=== PATIENT | female | born 1950 | race Caucasian/White ===

== ENCOUNTER → 2017-10-15 08:47 | Outpatient (CLI) | payer OTHER, SELFPAY ==
[2017-10-15 09:58] LABS: Alanine Aminotransferase 40 IU/L (9-52); Albumin Globulin Ratio 1.3 (1.0-2.8); Alkaline Phosphatase 39 U/L (38-126); Aspartate Aminotransferase 41 IU/L (14-36); BUN Creatinine Ratio 18.6 (6-22); Bilirubin Total 0.7 mg/dL (0.2-1.3); Blood Urea Nitrogen 13 mg/dL (7-17); Calcium 9.7 mg/dL (8.4-10.2); Carbon Dioxide 32 mmol/L (22-32); Chloride 100 mmol/L (98-107); Estimated Glomerular Filt Rate > 60.0 mL/min (>60); Glucose 90 mg/dL (80-110); HEMOLYSIS < 15 (0-50); Magnesium 2.1 mg/dL (1.6-2.3); Potassium 4.7 mmol/L (3.4-5.1); Sodium 141 mmol/L (137-145)
[2017-10-19 07:57] LABS: Lipoprofile NMR SEE SEPARATE REPORTS
== END ==
PROVIDERS: PCP Family Medicine; Visit Provider Specialist
DX: I48.0 Paroxysmal atrial fibrillation (principal); E78.2 Mixed hyperlipidemia
CPT/HCPCS: 36415; 80053; 83704; 83735

== ENCOUNTER → 2018-02-16 14:16 | Outpatient (CLI) | payer MEDICARE, BC, SELFPAY ==
[2018-02-16 16:10] LABS: Alanine Aminotransferase 44 IU/L (9-52); Albumin 3.7 g/dL (3.5-5.0); Albumin Globulin Ratio 1.4 (1.0-2.8); Alkaline Phosphatase 38 U/L (38-126); Aspartate Aminotransferase 51 IU/L (14-36); BUN Creatinine Ratio 21.7 (6-22); Bilirubin Total 0.5 mg/dL (0.2-1.3); Blood Urea Nitrogen 13 mg/dL (7-17); Calcium 9.3 mg/dL (8.4-10.2); Carbon Dioxide 32 mmol/L (22-32); Chloride 103 mmol/L (98-107); Estimated Glomerular Filt Rate > 60.0 mL/min (>60); Globulin 2.6 g/dL (1.7-4.1); Glucose 87 mg/dL (80-110); HEMOLYSIS < 15 (0-50); Magnesium 2.2 mg/dL (1.6-2.3); Sodium 141 mmol/L (137-145); Total Protein 6.3 g/dL (6.3-8.2)
== END ==
PROVIDERS: Visit Provider Specialist
DX: I48.0 Paroxysmal atrial fibrillation (principal); R94.5 Abnormal results of liver function studies
CPT/HCPCS: 36415; 80053; 80299; 83735

== ENCOUNTER → 2018-06-18 10:09 | Outpatient (CLI) | payer MEDICARE, BC, SELFPAY ==
[2018-06-18 11:14] LABS: Alanine Aminotransferase 41 IU/L (9-52); Albumin 3.9 g/dL (3.5-5.0); Albumin Globulin Ratio 1.4 (1.0-2.8); Alkaline Phosphatase 46 U/L (38-126); Aspartate Aminotransferase 46 IU/L (14-36); Bilirubin Total 0.4 mg/dL (0.2-1.3); Blood Urea Nitrogen 7 mg/dL (7-17); Calcium 9.6 mg/dL (8.4-10.2); Carbon Dioxide 29 mmol/L (22-32); Chloride 100 mmol/L (98-107); Estimated Glomerular Filt Rate > 60.0 mL/min (>60); Globulin 2.7 g/dL (1.7-4.1); Glucose 77 mg/dL (80-110); HEMOLYSIS < 15 (0-50); Potassium 4.5 mmol/L (3.4-5.1); Sodium 137 mmol/L (137-145); Total Protein 6.6 g/dL (6.3-8.2)
[2018-06-21 10:19] LABS: Lipoprofile NMR SEE SEPERATE REPORT
== END ==
PROVIDERS: Family Provider Family Medicine; PCP Family Medicine; Visit Provider Specialist
DX: I48.0 Paroxysmal atrial fibrillation (principal); R94.5 Abnormal results of liver function studies; E78.2 Mixed hyperlipidemia
CPT/HCPCS: 36415; 80053; 80299; 83704

== ENCOUNTER → 2018-10-27 09:08 | Outpatient (CLI) | payer MEDICARE, BC, SELFPAY ==
[2018-10-27 11:08] LABS: Alanine Aminotransferase 31 IU/L (9-52); Albumin 3.6 g/dL (3.5-5.0); Albumin Globulin Ratio 1.2 (1.0-2.8); Alkaline Phosphatase 39 U/L (38-126); Aspartate Aminotransferase 48 IU/L (14-36); BUN Creatinine Ratio 11.4 (6-22); Bilirubin Total 0.3 mg/dL (0.2-1.3); Blood Urea Nitrogen 8 mg/dL (7-17); Calcium 9.6 mg/dL (8.4-10.2); Carbon Dioxide 31 mmol/L (22-32); Chloride 101 mmol/L (98-107); Estimated Glomerular Filt Rate > 60.0 mL/min (>60); Globulin 2.9 g/dL (1.7-4.1); Glucose 97 mg/dL (80-110); HEMOLYSIS < 15 (0-50); Magnesium 1.9 mg/dL (1.6-2.3); Sodium 138 mmol/L (137-145); Total Protein 6.5 g/dL (6.3-8.2)
[2018-10-29 11:40] LABS: Lipoprofile NMR SEE SEPERATE REPORT
== END ==
PROVIDERS: Family Provider Family Medicine; PCP Family Medicine; Visit Provider Specialist
DX: I48.0 Paroxysmal atrial fibrillation (principal); E78.2 Mixed hyperlipidemia; R94.5 Abnormal results of liver function studies
CPT/HCPCS: 36415; 80053; 83704; 83735

== ENCOUNTER → 2019-06-30 08:15 | Outpatient (CLI) | payer MEDICARE, BC, SELFPAY ==
[2019-06-30 09:28] LABS: Alanine Aminotransferase 45 IU/L (<35); Albumin 3.5 g/dL (3.5-5.0); Albumin Globulin Ratio 1.2 (1.0-2.8); Alkaline Phosphatase 37 U/L (38-126); Aspartate Aminotransferase 46 IU/L (14-36); BUN Creatinine Ratio 14.3 (6-22); Bilirubin Total 0.6 mg/dL (0.2-1.3); Blood Urea Nitrogen 10 mg/dL (7-17); Calcium 9.5 mg/dL (8.4-10.2); Carbon Dioxide 33 mmol/L (22-32); Chloride 103 mmol/L (98-107); Estimated Glomerular Filt Rate > 60.0 mL/min (>60); Globulin 2.9 g/dL (1.7-4.1); Glucose 85 mg/dL (80-110); HEMOLYSIS < 15 (0-50); Magnesium 1.9 mg/dL (1.6-2.3); Potassium 4.1 mmol/L (3.4-5.1); Sodium 139 mmol/L (137-145); Total Protein 6.4 g/dL (6.3-8.2)
[2019-07-04 08:40] LABS: Lipoprofile NMR SEE SEPERATE REPORT
== END ==
PROVIDERS: Family Provider Family Medicine; PCP Family Medicine; Referring Provider Specialist; Visit Provider Specialist
DX: E78.2 Mixed hyperlipidemia (principal); I48.0 Paroxysmal atrial fibrillation
CPT/HCPCS: 36415; 80053; 83704; 83735

== ENCOUNTER → 2020-02-23 10:01 | Outpatient (CLI) | payer MEDICARE, BC, SELFPAY ==
[2020-02-23 12:07] LABS: Alanine Aminotransferase 28 IU/L (<35); Albumin 3.5 g/dL (3.5-5.0); Albumin Globulin Ratio 1.3 (1.0-2.8); Alkaline Phosphatase 44 U/L (38-126); Aspartate Aminotransferase 46 IU/L (14-36); BUN Creatinine Ratio 26.9 (6-22); Bilirubin Total 0.5 mg/dL (0.2-1.3); Blood Urea Nitrogen 21 mg/dL (7-17); Calcium 9.4 mg/dL (8.4-10.2); Carbon Dioxide 32 mmol/L (22-32); Chloride 104 mmol/L (98-107); Estimated Glomerular Filt Rate > 60.0 mL/min (>60); Globulin 2.7 g/dL (1.7-4.1); Glucose 80 mg/dL (80-110); HEMOLYSIS < 15 (0-50); Potassium 4.2 mmol/L (3.4-5.1); Sodium 138 mmol/L (137-145); Total Protein 6.2 g/dL (6.3-8.2)
[2020-03-13 15:21] LABS: LDL Particle 954
[2020-03-13 15:22] LABS: HDL-Cholesterol 124; LDL-Cholsterol 125
[2020-03-13 15:23] LABS: Cholesterol, Total 256; Triglycerides 47
[2020-03-13 15:24] LABS: HDL-Particle (Total) 39.7; LDL Size 21.1; Small LDL- Particle <90
== END ==
PROVIDERS: Family Provider Family Medicine; PCP Family Medicine; Referring Provider Specialist; Visit Provider Specialist
DX: E78.2 Mixed hyperlipidemia (principal); I48.0 Paroxysmal atrial fibrillation
CPT/HCPCS: 36415; 80053; 80061; 80299; 83704; 83735

== ENCOUNTER → 2021-04-22 09:13 | Outpatient (CLI) | payer MEDICARE, BC, SELFPAY ==
[2021-04-22 13:41] LABS: Alanine Aminotransferase 24 IU/L (<35); Albumin 3.5 g/dL (3.5-5.0); Albumin Globulin Ratio 1.3 (1.0-2.8); Alkaline Phosphatase 45 U/L (38-126); Aspartate Aminotransferase 44 IU/L (14-36); BUN Creatinine Ratio 17.7 (6-22); Bilirubin Total 0.4 mg/dL (0.2-1.3); Blood Urea Nitrogen 14 mg/dL (7-17); Calcium 9.7 mg/dL (8.4-10.2); Carbon Dioxide 32 mmol/L (22-32); Chloride 103 mmol/L (98-107); Estimated Glomerular Filt Rate > 60.0 mL/min (>60); Globulin 2.7 g/dL (1.7-4.1); Glucose 81 mg/dL (80-110); HEMOLYSIS < 15 (0-50); Potassium 4.8 mmol/L (3.4-5.1); Sodium 137 mmol/L (137-145); Total Protein 6.2 g/dL (6.3-8.2)
[2021-04-25 08:17] LABS: Cholesterol, Total 249 mg/dL (100-199); HDL-Cholesterol 114 mg/dL (>39); HDL-Particle (Total) 37.1 umol/L (>=30.5); LDL Particle 1037 nmol/L (<1000); LDL Size 21.2 nm (>20.5); LDL-Cholsterol 125 mg/dL (0-99); LP-IR Score <25 (<=45); Small LDL- Particle <90 nmol/L (<=527); Triglycerides 60 mg/dL (0-149)
== END ==
PROVIDERS: Family Provider Family Medicine; PCP Family Medicine; Referring Provider Specialist; Visit Provider Specialist
DX: E78.00 Pure hypercholesterolemia, unspecified (principal)
CPT/HCPCS: 36415; 80053; 80061; 83704

== ENCOUNTER → 2021-12-13 08:40 | Outpatient (CLI) | payer MEDICARE, BC, SELFPAY ==
[2021-12-13 11:17] LABS: Alanine Aminotransferase 26 IU/L (<35); Albumin 3.5 g/dL (3.5-5.0); Albumin Globulin Ratio 1.1 (1.0-2.8); Alkaline Phosphatase 49 U/L (38-126); Aspartate Aminotransferase 46 IU/L (14-36); BUN Creatinine Ratio 11.8 (6-22); Bilirubin Total 0.4 mg/dL (0.2-1.3); Blood Urea Nitrogen 9 mg/dL (7-17); Calcium 9.2 mg/dL (8.4-10.2); Carbon Dioxide 34 mmol/L (22-32); Chloride 102 mmol/L (98-107); Estimated Glomerular Filt Rate > 60 mL/min (>60); Globulin 3.2 g/dL (1.7-4.1); Glucose 85 mg/dL (80-110); HEMOLYSIS < 15 (0-50); Potassium 4.4 mmol/L (3.4-5.1); Sodium 138 mmol/L (137-145); Total Protein 6.7 g/dL (6.3-8.2)
[2021-12-13 11:48] LABS: Thyroid Stimulating Hormone 0.777 uIU/mL (0.47-4.68)
[2021-12-14 14:58] LABS: Free T4, Direct Thyroxine 1.12 ng/dL (0.78-2.19)
[2021-12-15 12:02] LABS: Cholesterol, Total 248 mg/dL (100-199); HDL-Cholesterol 116 mg/dL (>39); HDL-Particle (Total) 36.7 umol/L (>=30.5); LDL Particle 1085 nmol/L (<1000); LDL Size 21.1 nm (>20.5); LDL-Cholsterol 120 mg/dL (0-99); LP-IR Score <25 (<=45); Small LDL- Particle <90 nmol/L (<=527); Triglycerides 71 mg/dL (0-149)
== END ==
PROVIDERS: Family Provider Family Medicine; PCP Family Medicine; Referring Provider Specialist; Visit Provider Specialist
DX: I48.0 Paroxysmal atrial fibrillation (principal); E78.00 Pure hypercholesterolemia, unspecified
CPT/HCPCS: 36415; 80053; 80061; 80299; 83704; 83735; 84439; 84443

== ENCOUNTER → 2021-12-19 09:10 | Outpatient (CLI) | payer MEDICARE, BC, SELFPAY | PROVIDERS: Family Provider Family Medicine; PCP Family Medicine; Referring Provider Specialist; Visit Provider Specialist | DX: I48.0 Paroxysmal atrial fibrillation (principal) | CPT/HCPCS: 36415; 80299 ==

== ENCOUNTER → 2022-02-24 07:54 | Outpatient (CLI) | payer MEDICARE, BC, SELFPAY ==
[2022-02-24 08:30] LABS: Add Manual Diff / Slide Review NO; Basophils Absolute Auto 100 /uL (0-100); Basophils Percent Auto 0.7 % (0-2); Eosinophils Absolute Auto 100 /uL (0-450); Eosinophils Percent Auto 1.3 % (2-4); Hemoglobin 13.5 g/dL (12.0-16.0); Lymphocytes Absolute Auto 1000 /uL (1100-4500); Lymphocytes Percent Auto 13.3 % (25-40); Mean Corpuscular HGB Conc 32.9 % (30-36); Mean Corpuscular Volume 91.1 fL (80-100); Monocytes Absolute Auto 500 /uL (0-900); Monocytes Percent Auto 6.6 % (3-14); Neutrophils Absolute Auto 6100 /uL (1500-7000); Neutrophils Percent Auto 78.1 % (50-75); Platelet Count 272 X10^3/uL (150-400); White Blood Cell Count 7.9 X10^3/uL (4.5-11.0)
== END ==
PROVIDERS: Family Provider Family Medicine; PCP Family Medicine; Referring Provider Family Medicine; Visit Provider Family Medicine
DX: D75.1 Secondary polycythemia (principal); I47.1 Supraventricular tachycardia; I48.0 Paroxysmal atrial fibrillation
CPT/HCPCS: 36415; 85025

== ENCOUNTER → 2022-02-26 11:03 | Outpatient (CLI) | payer MEDICARE, BC, SELFPAY ==
[2022-02-26 11:27] LABS: HEMOLYSIS < 15 (0-50); Iron 92 ug/dL (37-170)
[2022-02-26 11:38] LABS: Percent Iron Saturation 24 % (15-50); Total Iron Binding Capacity 376 ug/dL (265-497); Transferrin 281 mg/dL (206-381)
[2022-02-26 12:00] LABS: Ferritin 15 ng/mL (11-264)
== END ==
PROVIDERS: Family Provider Family Medicine; PCP Family Medicine; Visit Provider Family Medicine
DX: D75.1 Secondary polycythemia (principal); I47.1 Supraventricular tachycardia; I48.0 Paroxysmal atrial fibrillation
CPT/HCPCS: 82728; 83540; 83550

== ENCOUNTER 2022-02-28 11:32 | Emergency (ER) | payer MEDICARE, BC, SELFPAY ==
[2022-02-28 11:46] VITALS: BP 161/70; PULSE 53; RESP 14; TEMP 35.7; O2SAT 100; BMI 19.3
--- NOTE | 2022-02-28 12:58 | DI.US.S_ITS ---
PROCEDURE: US EXTREMITY NONVASC LOWER RT INDICATIONS: RIGHT MEDIAL CALF LUMP TECHNIQUE: Real-time scanning was performed of the right medial calf, with image documentation. COMPARISON: None. FINDINGS: In the area of current clinical concern there is a combined solid and fluid collection without internal or elevated peripheral vascularity at the posterior medial calf inferior to the knee. This measures up to 2.1 x 7.2 x 8.9 cm. IMPRESSION: Avascular complex fluid and debris collection within the area of current clinical concern measuring up to 2.1 x 7.2 x 8.9 cm. The appearance is nonspecific but given the absence of elevated vascularity and abscess is considered less likely than a hematoma, and possibly a inferior-dissecting complex Randall cyst emanating from the knee. Contrast-enhanced soft tissue MRI may be warranted depending on the clinical status. Please note that spontaneous hematoma in the soft tissues in a patient who has not undergone trauma and is not anticoagulated could indicate bleeding within a tumor that originally is small in size. For this reason MR scanning should be considered, potentially. Dictated by: Daniele Cuenca M.D. on 02/28/2022 at 13:39 Approved by: Daniele Cuenca M.D. on 02/28/2022 at 13:42
--- NOTE | 2022-02-28 12:59 | ED_ITS ---
HPI - Extremity Problem <Smitha Arana SHIRT MARKER - Last Filed: 02/28/22 18:17> General Chief complaint: Extremity Problem,Nontraumatic Stated complaint: abscess on RT leg/bruising Time Seen by Provider: 02/28/22 12:27 Source: patient Mode of arrival: Ambulatory History of Present Illness HPI Narrative: This is a 72-year-old female who presents to the emergency department with sudden onset of right calf pain while she was at the gym, she states that she was not doing anything physical at the time and was standing when she felt a sharp pain in her right calf. She states it swelled up like a golf while and then has been firm to palpation since. She is anticoagulated on Eliquis for atrial fibrillation. States that it is under control, she also takes flecainide, atorvastatin, metoprolol and has a history breast cancer. She recently had iron studies done which were all within range. Denies any pre-existing pain to this area. States that she did not do anything excessively physical. She denies any other bleeding. She has a history of DVT in the past as well. Related Data Home Medications Medication Instructions Recorded Confirmed VITAMIN D (Vitamin D3) 2,000 unit PO QDAY ##0 12/09/12 02/26/22 flecainide 50 mg tablet 100 mg PO BID 06/03/18 02/26/22 aspirin 81 mg tablet,delayed 81 mg PO DAILY 03/09/20 02/26/22 release (Adult Low Dose Aspirin) Previous Rx's Medication Instructions Recorded atorvastatin 20 mg tablet (Lipitor) 20 mg PO HS #90 tabs 10/13/16 metoprolol succinate 25 mg 0 PO SEE INSTRUCTIONS #30 tabs 03/03/17 tablet,extended release 24 hr (Toprol XL) apixaban 5 mg tablet (Eliquis) 5 mg PO BID #60 tabs 09/09/17 omeprazole 40 mg capsule,delayed See Rx Instructions .Route 03/13/21 release .COMPLEX #30 caps minoxidil 5 % topical foam 1 ea topical DAILY #60 grams 02/26/22 diclofenac sodium 1 % topical gel 4 g topical QID PRN rt calf 02/28/22 pain/swelling #100 grams methocarbamol 500 mg tablet 500 mg PO BEDTIME PRN muscle 02/28/22 spasm, pain #14 tabs tramadol 50 mg tablet 50 mg PO BID PRN pain #14 tabs 02/28/22 Allergies Allergy/AdvReac Type Severity Reaction Status Date / Time No Known Drug Allergies Allergy Verified 02/28/22 11:46 Review of Systems <ELIZABETH Braswell - Last Filed: 02/28/22 18:17> Review of Systems Narrative: Review of systems is negative for acute abnormalities unless otherwise noted in HPI Patient History <ELIZABETH Braswell - Last Filed: 02/28/22 18:17> Medical History Anesthesia Atrial fibrillation (2016) Breast cancer (2009) Cardiac arrhythmia (2014) DVT (deep venous thrombosis) (2012) GERD (gastroesophageal reflux disease) (2001) Hyperlipidemia (2004) PSVT (paroxysmal supraventricular tachycardia) (2014) Surgical History History of colonoscopy (2008) History of total mastectomy (2009) Normal colonoscopy (2008) Status post colposcopy (2008) Family History Father No problems noted. Mother No problems noted. Social History marital status: number of children: 2 household members: spouse lives independently: Yes caregiver/support person: No housing: house Smoking Status: Former smoker second hand exposure: No alcohol intake: current substance use type: does not use Smoking Status: Former smoker alcohol intake frequency: 0-2 drinks per day Exam <ELIZABETH Braswell - Last Filed: 02/28/22 18:17> Narrative Exam Narrative: Reviewed vitals signs and nursing notes. General: cooperative, comfortable, in no acute distress, well groomed HEENT: symmetrical facial expressions, moist mucous membranes Cardiovascular: regular rate and rhythm, no dependent edema, warm extremities without murmur, tachycardia, circumferential edema MSK: moves all extremities, neurovascularly intact, no weakness, normal tone, left medial calf with swelling, ecchymosis, is firm on the proximal medial aspect to palpation, without fluctuance, distal aspect with ecchymosis and is soft to palpation, proximal aspect is firm to palpation. Skin: brisk capillary refill, without pallor or erythema Neuro: normal speech and cognition, A&O x3, ambulatory, clear speech Psych: mental status is grossly normal, congruent mood, normal affect, pleasant and cooperative Initial Vital Signs Initial Vital Signs: Vital Signs Temperature 96.2 F L 02/28/22 11:46 Pulse Rate 53 L 02/28/22 11:46 Respiratory Rate 14 02/28/22 11:46 Blood Pressure 161/70 H 02/28/22 11:46 Pulse Oximetry 100 02/28/22 11:46 Oxygen Delivery Method 02/28/22 11:46 <Joyce Roach DO - Last Filed: 03/04/22 02:52> Initial Vital Signs Initial Vital Signs: Vital Signs Temperature 96.2 F L 02/28/22 11:46 Pulse Rate 53 L 02/28/22 11:46 Respiratory Rate 14 02/28/22 11:46 Blood Pressure 161/70 H 02/28/22 11:46 Pulse Oximetry 100 02/28/22 11:46 Oxygen Delivery Method 02/28/22 11:46 Course <ELIZABETH Braswell - Last Filed: 02/28/22 18:17> Orders Ordered: Discontinued Medications Acetaminophen (Acetaminophen 325 Mg Tablet) 975 mg PO NOW ONE Stop: 02/28/22 16:32 Last Admin: 02/28/22 16:35 Dose: 975 mg Documented By: CHANA Methocarbamol (Methocarbamol 500 Mg Tablet) 500 mg PO NOW ONE Stop: 02/28/22 16:33 Last Admin: 02/28/22 16:36 Dose: Not Given Documented By: CHANA Tramadol HCl (Tramadol 50 Mg Tablet) 50 mg PO NOW ONE Stop: 02/28/22 16:32 Last Admin: 02/28/22 16:44 Dose: Not Given Documented By: CHANA Reevaluation(s) Reevaluation #1: Re-evaluated after patient's ultrasound, no increased swelling, firmness, distal aspect is softer and not larger, patient denies any increase in pain. Vital Signs Vital signs: Vital Signs - 8 hr 02/28/22 11:46 02/28/22 16:21 Temperature 96.2 F L Pulse Rate 53 L 51 L Respiratory Rate 14 18 Blood Pressure 161/70 H 145/67 H Pulse Oximetry 100 99 Oxygen Delivery Method Room Air Room Air <Joyce Roach DO - Last Filed: 03/04/22 02:52> Orders Ordered: Discontinued Medications Acetaminophen (Acetaminophen 325 Mg Tablet) 975 mg PO NOW ONE Stop: 02/28/22 16:32 Last Admin: 02/28/22 16:35 Dose: 975 mg Documented By: CHANA Methocarbamol (Methocarbamol 500 Mg Tablet) 500 mg PO NOW ONE Stop: 02/28/22 16:33 Last Admin: 02/28/22 16:36 Dose: Not Given Documented By: CHANA Tramadol HCl (Tramadol 50 Mg Tablet) 50 mg PO NOW ONE Stop: 02/28/22 16:32 Last Admin: 02/28/22 16:44 Dose: Not Given Documented By: CHANA Vital Signs Vital signs: Vital Signs - 8 hr 02/28/22 11:46 02/28/22 16:21 Temperature 96.2 F L Pulse Rate 53 L 51 L Respiratory Rate 14 18 Blood Pressure 161/70 H 145/67 H Pulse Oximetry 100 99 Oxygen Delivery Method Room Air Room Air MDM - Extremity (Nontraumatic) <ELIZABETH Braswell - Last Filed: 02/28/22 18:17> Lab Data Result diagrams: 02/28/22 14:36 02/28/22 14:36 Labs: Lab Results 02/28/22 02/28/22 02/28/22 Range/Units 14:36 14:36 14:36 WBC 9.1 (4.5-11.0) X10^3/uL RBC 4.63 (4.0-5.2) X10^6/uL Hgb 14.2 (12.0-16.0) g/dL Hct 42.5 (36-46) % MCV 91.7 (80-100) fL MCH 30.7 (26-34) PG MCHC 33.5 (30-36) % RDW 15.1 H (11.6-14.8) % Plt Count 327 (150-400) X10^3/uL Neut % (Auto) 80.0 H (50-75) % Lymph % (Auto) 14.3 L (25-40) % [place] % (Auto) 4.2 (3-14) % Eos % (Auto) 1.0 L (2-4) % Baso % (Auto) 0.5 (0-2) % Neut # (Auto) 7300 H (1678-6522) /uL Lymph # (Auto) 1300 (1212-0483) /uL [place] # (Auto) 400 (0-900) /uL Eos # (Auto) 100 (0-450) /uL Baso # (Auto) 0 (0-100) /uL PT 13.6 H (10.1-12.7) SECONDS INR 1.2 (0.9-1.3) APTT 36 (26-36) SECONDS Sodium 139 (137-145) mmol/L Potassium 3.9 (3.4-5.1) mmol/L Chloride 102 (98-107) mmol/L Carbon Dioxide 29 (22-32) mmol/L BUN 10 (7-17) mg/dL Creatinine 0.68 (0.52-1.04) mg/dL Estimated GFR > 60 (>60) mL/min BUN/Creatinine Ratio 14.7 (6-22) Glucose 77 L (80-110) mg/dL Calcium 9.6 (8.4-10.2) mg/dL Total Bilirubin 0.5 (0.2-1.3) mg/dL AST 42 H (14-36) IU/L ALT 26 (<35) IU/L Alkaline Phosphatase 58 (38-126) U/L Total Protein 7.7 (6.3-8.2) g/dL Albumin 4.0 (3.5-5.0) g/dL Globulin 3.7 (1.7-4.1) g/dL Albumin/Globulin Ratio 1.1 (1.0-2.8) Imaging Data US - DVT: Radiologist's Impression: PROCEDURE:? US EXTREMITY NONVASC LOWER RT ? INDICATIONS:? RIGHT MEDIAL CALF LUMP ? TECHNIQUE:? Real-time scanning was performed of the right medial calf, with image documentation.? ? COMPARISON:? None. ? FINDINGS:? In the area of current clinical concern there is a combined solid and fluid collection without internal or elevated peripheral vascularity at the posterior medial calf inferior to the knee.? This measures up to 2.1 x 7.2 x 8.9 cm.? ? IMPRESSION:? Avascular complex fluid and debris collection within the area of current clinical concern measuring up to 2.1 x 7.2 x 8.9 cm.? The appearance is nonspecific but given the absence of elevated vascularity and abscess is considered less likely than a hematoma, and possibly a inferior-dissecting complex Randall cyst emanating from the knee.? Contrast-enhanced soft tissue MRI may be warranted depending on the clinical status.? Please note that spontaneous hematoma in the soft tissues in a patient who has not undergone trauma and is not anticoagulated could indicate bleeding within a tumor that originally is small in size.? For this reason MR scanning should be considered, potentially.? ? ? Dictated by: Daniele Cuenca M.D. on 02/28/2022 at 13:39 ? ? Approved by: Daniele Cuenca M.D. on 02/28/2022 at 13:42 ? MRI: Radiologist's Impression: PROCEDURE:? MR LOWER LEG RT WO/W CON ? INDICATIONS:? hematoma to medial calf, anticoagulated, malignancy/aneurysm ? TECHNIQUE:? Noncontrast coronal T1 spin echo and STIR, sagittal T1 spin echo with fat saturation and STIR, axial T1 spin echo and T2 fast spin echo with fat saturation.? After the administration of contrast, axial/sagittal/coronal T1 spin echo with fat saturation through the right lower leg .? ? COMPARISON:? [facility], EXTREMITY NONVASC LOWER RT, 02/28/2022, 13:18. ? FINDINGS:? Image quality:? Excellent.? ? Bones:? The visualized bone marrow demonstrates normal signal on all sequences.? The overlying cortex appears intact.? No abnormal intraosseous enhancement.? ? Soft tissues:? Ill-defined lobulated heterogeneous T1 hypointense and T2 hyperi ntense collection in deep soft tissue over posterior and medial aspect of proximal to mid lower leg and is superficial to the medial head of gastrocnemius muscle.? This collection measures up to 2.5 x 6.1 x 12 cm in largest transverse, AP and craniocaudal dimensions series 4, image 9 and series 7, image 22. After IV contrast infusion, no enhancement is seen within this area.? No large feeding vessel is noted extending into this area.? There is mass effect on the adjacent medial head of gastrocnemius muscle with fluid extending along posterior medial aspect of right lower leg.? No muscle signal abnormality or abnormal enhancement is seen.? No enhancing soft tissue mass is seen. ? IMPRESSION:? 1. Finding is consistent with a large hematoma along posterior and medial aspect of proximal to mid right lower leg soft tissue superficial to the medial head of gastrocnemius muscle and measures up to 2.5 x 6.1 x 12 cm in size.? No enhancing soft tissue mass is seen. ? 2. No intramuscular fluid collection or enhancing lesion is seen. ? 3. No marrow signal abnormality.? No fracture or dislocation.? No abnormal intraosseous enhancement. ? ? Dictated by: Richard Fulton M.D. on 02/28/2022 at 15:37 ? ? Approved by: Richard Fulton M.D. on 02/28/2022 at 15:47 ? MDM Narrative Medical decision making narrative: [age] year female presents to the emergency department with acute onset of swelling and pain to the right medial calf this morning while she was at the gym, she states that she was not exerting herself at the time and was purely standing there without great effort. She is anticoagulated on Eliquis b.i.d.,. Venous ultrasound of her lower extremity shows an Avascular complex fluid and debris collection within the area of current clinical concern measuring up to 2.1 x 7.2 x 8.9 cm.? The appearance is nonspecific but given the absence of elevated vascularity and abscess is considered less likely than a hematoma, and possibly a inferior-dissecting complex Randall cyst emanating from the knee.? Contrast-enhanced soft tissue MRI may be warranted depending on the clinical status.?Please note that spontaneous hematoma in the soft tissues in a patient who has not undergone trauma and is not anticoagulated could indicate bleeding within a tumor that originally is small in size.? For this reason MR scanning was considered and ordered. MR of the lower extremity shows finding is consistent with a large hematoma along posterior and medial aspect of proximal to mid right lower leg soft tissue superficial to the medial head of gastrocnemius muscle and measures up to 2.5 x 6.1 x 12 cm in size.? No enhancing soft tissue mass is seen. No intramuscular fluid collection or enhancing lesion is seen.. No marrow signal abnormality.? No fracture or dislocation.? No abnormal intraosseous enhancement. Discussed this with the patient, she did not have any interval enlargement of this hematoma, she developed pain later throughout her stay after both scans, prescribed for her topical diclofenac gel, tramadol as needed, and muscle relaxer she is having difficulty sleeping. Encourage patient to follow- up with her primary care provider, mentioned that this might improve with heat and cool compresses, a heel lift in her shoe and close follow-up. Her chart was sent to Dr. Hammer her salesforce consultant so he can assess if this is inappropriate bleeding or not and reassess her for her anticoagulant use as appropriate. Patient is appropriate and amenable to discharge home. Vital signs are stable on repeat examination is unremarkable. Patient has been informed of results. Patient has been given strict return to ER precautions for any new or worsening symptoms. Patient understands to follow up closely with outpatient providers as instructed. Patient understands plan and agrees to discharge home. All questions and concerns answered at this time. <Joyce Roach, DO - Last Filed: 03/04/22 02:52> Lab Data Labs: Lab Results 02/28/22 02/28/22 02/28/22 Range/Units 14:36 14:36 14:36 WBC 9.1 (4.5-11.0) X10^3/uL RBC 4.63 (4.0-5.2) X10^6/uL Hgb 14.2 (12.0-16.0) g/dL Hct 42.5 (36-46) % MCV 91.7 (80-100) fL MCH 30.7 (26-34) PG MCHC 33.5 (30-36) % RDW 15.1 H (11.6-14.8) % Plt Count 327 (150-400) X10^3/uL Neut % (Auto) 80.0 H (50-75) % Lymph % (Auto) 14.3 L (25-40) % [place] % (Auto) 4.2 (3-14) % Eos % (Auto) 1.0 L (2-4) % Baso % (Auto) 0.5 (0-2) % Neut # (Auto) 7300 H (7287-0590) /uL Lymph # (Auto) 1300 (4936-8336) /uL [place] # (Auto) 400 (0-900) /uL Eos # (Auto) 100 (0-450) /uL Baso # (Auto) 0 (0-100) /uL PT 13.6 H (10.1-12.7) SECONDS INR 1.2 (0.9-1.3) APTT 36 (26-36) SECONDS Sodium 139 (137-145) mmol/L Potassium 3.9 (3.4-5.1) mmol/L Chloride 102 (98-107) mmol/L Carbon Dioxide 29 (22-32) mmol/L BUN 10 (7-17) mg/dL Creatinine 0.68 (0.52-1.04) mg/dL Estimated GFR > 60 (>60) mL/min BUN/Creatinine Ratio 14.7 (6-22) Glucose 77 L (80-110) mg/dL Calcium 9.6 (8.4-10.2) mg/dL Total Bilirubin 0.5 (0.2-1.3) mg/dL AST 42 H (14-36) IU/L ALT 26 (<35) IU/L Alkaline Phosphatase 58 (38-126) U/L Total Protein 7.7 (6.3-8.2) g/dL Albumin 4.0 (3.5-5.0) g/dL Globulin 3.7 (1.7-4.1) g/dL Albumin/Globulin Ratio 1.1 (1.0-2.8) Discharge Plan Departure Patient Disposition: Home Clinical Impression: Anticoagulant long-term use, Nontraumatic hematoma of muscle Instructions: DI for Calf Muscle Strain, DI for Hematoma (Bruise) Activity Restrictions/Additional Instructions: *You have been diagnosed with a hematoma along right calf muscle, this is a similar injury to a calf strain or a partial calf tear. Please use the topical diclofenac gel up to 4 times daily for tenderness in pain, you can use the muscle relaxers if it is helpful for muscle spasms or for muscle pain, please use the tramadol in addition to Tylenol as needed for your pain. Please stay hydrated, you may try a heel lift in her shoe, those are available at the pharmacy, you may use heat and alternate with ice every 20 minute 2 or 3 times a day for the next 2-3 days to see if this helps absorb the blood. Please make an appointment with Dr. Hammer for recheck of your anticoagulant if this is bleeding inappropriately. If you notice any other bleeding anywhere, please make this appointment sooner than later. I have sent this chart to him as well as your scans and lab work. *What to do: *Please continue to take your regular medications as directed. [ x] New medication prescriptions sent to your pharmacy: [ [facility]] [ ] New medication written as a paper prescription [ ] No new medications given *Please follow up with your primary care provider in 2-3 days, call for an appointment. Let them know you were seen in the Emergency Department and that we asked that you be seen for follow-up. We will electronically transmit a record of today's note if your PCP is in our system *If you do not have a primary care provider please contact [phone] to establish care with one of the [facility] primary care providers. *Return to Emergency Department if you should have any new, worsening, or concerning symptoms, such as [fever greater than 101F, chills, worsening pain, persistent vomiting or other bothersome symptoms]. Prescriptions: New tramadol 50 mg tablet 50 mg PO BID PRN (Reason: pain) Qty: 14 0RF diclofenac sodium 1 % gel 4 g topical QID PRN (Reason: rt calf pain/swelling) Qty: 100 0RF Rx Instructions: apply to single elbow, wrist or hand; for hand includes palm/fingers/back of hand methocarbamol 500 mg tablet 500 mg PO BEDTIME PRN (Reason: muscle spasm, pain) Qty: 14 0RF No Action aspirin [Adult Low Dose Aspirin] 81 mg tablet,delayed release (DR/EC) 81 mg PO DAILY minoxidil 5 % foam 1 ea topical DAILY Qty: 60 2RF VITAMIN D (Vitamin D3) 2,000 unit PO QDAY Qty: 0 atorvastatin [Lipitor] 20 MG tablet 20 mg PO HS Qty: 90 3RF metoprolol succinate [Toprol XL] 25 MG tablet extended release 24 hr 0 PO SEE INSTRUCTIONS Qty: 30 1RF apixaban [Eliquis] 5 mg tablet 5 mg PO BID Qty: 60 6RF omeprazole 40 mg capsule,delayed release(DR/EC) See Rx Instructions .ROUTE .COMPLEX Qty: 30 0RF Dose Instruction: TAKE ONE CAPSULE BY MOUTH ONE TIME DAILY Rx Instructions: TAKE ONE CAPSULE BY MOUTH ONE TIME DAILY flecainide 50 mg tablet 100 mg PO BID Referrals: Lisa Stephen MD [Primary Care Provider] - Raj Hammer MD [Physician] - Visit Report Forms: Patient Portal/API <Joyce Roach DO - Last Filed: 03/04/22 02:52> Cosign ED Attending Cosignature Attestation: I was immediately available in the department for consultation. Documentation has been reviewed. I agree with assessment and plan. I saw patient calf was overall soft able to flex and extend distal pedal pulse intact no sign of compartment syndrome.
--- NOTE | 2022-02-28 14:10 | DI.MRI.S_ITS ---
PROCEDURE: MR LOWER LEG RT WO/W CON INDICATIONS: hematoma to medial calf, anticoagulated, malignancy/aneurysm TECHNIQUE: Noncontrast coronal T1 spin echo and STIR, sagittal T1 spin echo with fat saturation and STIR, axial T1 spin echo and T2 fast spin echo with fat saturation. After the administration of contrast, axial/sagittal/coronal T1 spin echo with fat saturation through the right lower leg . COMPARISON: [facility], , EXTREMITY NONVASC LOWER RT, 02/28/2022, 13:18. FINDINGS: Image quality: Excellent. Bones: The visualized bone marrow demonstrates normal signal on all sequences. The overlying cortex appears intact. No abnormal intraosseous enhancement. Soft tissues: Ill-defined lobulated heterogeneous T1 hypointense and T2 hyperintense collection in deep soft tissue over posterior and medial aspect of proximal to mid lower leg and is superficial to the medial head of gastrocnemius muscle. This collection measures up to 2.5 x 6.1 x 12 cm in largest transverse, AP and craniocaudal dimensions series 4, image 9 and series 7, image 22. After IV contrast infusion, no enhancement is seen within this area. No large feeding vessel is noted extending into this area. There is mass effect on the adjacent medial head of gastrocnemius muscle with fluid extending along posterior medial aspect of right lower leg. No muscle signal abnormality or abnormal enhancement is seen. No enhancing soft tissue mass is seen. IMPRESSION: 1. Finding is consistent with a large hematoma along posterior and medial aspect of proximal to mid right lower leg soft tissue superficial to the medial head of gastrocnemius muscle and measures up to 2.5 x 6.1 x 12 cm in size. No enhancing soft tissue mass is seen. 2. No intramuscular fluid collection or enhancing lesion is seen. 3. No marrow signal abnormality. No fracture or dislocation. No abnormal intraosseous enhancement. Dictated by: Richard Fulton M.D. on 02/28/2022 at 15:37 Approved by: Richard Fulton M.D. on 02/28/2022 at 15:47
[2022-02-28 14:55] LABS: Add Manual Diff / Slide Review NO; Basophils Absolute Auto 0 /uL (0-100); Basophils Percent Auto 0.5 % (0-2); Eosinophils Absolute Auto 100 /uL (0-450); Hematocrit 42.5 % (36-46); Hemoglobin 14.2 g/dL (12.0-16.0); Lymphocytes Absolute Auto 1300 /uL (1100-4500); Lymphocytes Percent Auto 14.3 % (25-40); Mean Corpuscular HGB Conc 33.5 % (30-36); Mean Corpuscular Hemoglobin 30.7 PG (26-34); Mean Corpuscular Volume 91.7 fL (80-100); Monocytes Absolute Auto 400 /uL (0-900); Monocytes Percent Auto 4.2 % (3-14); Neutrophils Absolute Auto 7300 /uL (1500-7000); Platelet Count 327 X10^3/uL (150-400); Red Blood Cell Count 4.63 X10^6/uL (4.0-5.2); Red Cell Distribution Width 15.1 % (11.6-14.8); White Blood Cell Count 9.1 X10^3/uL (4.5-11.0)
[2022-02-28 14:56] LABS: INR 1.2 (0.9-1.3); Prothrombin Time 13.6 SECONDS (10.1-12.7)
[2022-02-28 14:59] LABS: PTT Partial Thromboplastin Tim 36 SECONDS (26-36)
[2022-02-28 15:04] LABS: Alanine Aminotransferase 26 IU/L (<35); Albumin Globulin Ratio 1.1 (1.0-2.8); Alkaline Phosphatase 58 U/L (38-126); Aspartate Aminotransferase 42 IU/L (14-36); BUN Creatinine Ratio 14.7 (6-22); Bilirubin Total 0.5 mg/dL (0.2-1.3); Blood Urea Nitrogen 10 mg/dL (7-17); Calcium 9.6 mg/dL (8.4-10.2); Carbon Dioxide 29 mmol/L (22-32); Chloride 102 mmol/L (98-107); Estimated Glomerular Filt Rate > 60 mL/min (>60); Globulin 3.7 g/dL (1.7-4.1); Glucose 77 mg/dL (80-110); HEMOLYSIS 20 (0-50); Potassium 3.9 mmol/L (3.4-5.1); Sodium 139 mmol/L (137-145); Total Protein 7.7 g/dL (6.3-8.2)
--- NOTE | 2022-02-28 16:15 | PC.NURSE ---
pt reports feeling better post medications and requesting DC. Mother at bedside. vitals repeated
[2022-02-28 16:21] VITALS: BP 145/67; PULSE 51; RESP 18; O2SAT 99
[2022-02-28] MEDS: ACETAMINOPHEN 325 MG TABLET 975 MG PO (16:35)
== END 2022-02-28 16:52 | disposition home or self-care (01) ==
PROVIDERS: Emergency Provider Nurse Practitioner Critical Care Medicine; Family Provider Family Medicine; PCP Family Medicine
DX: S80.11XA Contusion of right lower leg, initial encounter (principal); Z79.01 Long term (current) use of anticoagulants
CPT/HCPCS: 36415; 73720; 76882; 80053; 85025; 85610; 85730; 99284

== ENCOUNTER → 2022-09-01 07:43 | Outpatient (CLI) | payer MEDICARE, BC, SELFPAY ==
[2022-09-01 09:04] LABS: Alanine Aminotransferase 19 IU/L (<35); Albumin Globulin Ratio 1.2 (1.0-2.8); Alkaline Phosphatase 48 U/L (38-126); Aspartate Aminotransferase 32 IU/L (14-36); BUN Creatinine Ratio 15.7 (6-22); Bilirubin Total 0.4 mg/dL (0.2-1.3); Blood Urea Nitrogen 11 mg/dL (7-17); Calcium 8.9 mg/dL (8.4-10.2); Carbon Dioxide 29 mmol/L (22-32); Chloride 103 mmol/L (98-107); Estimated Glomerular Filt Rate > 60 mL/min (>60); Globulin 2.5 g/dL (1.7-4.1); Glucose 86 mg/dL (80-110); HEMOLYSIS < 15 (0-50); Magnesium 1.9 mg/dL (1.6-2.3); Potassium 4.1 mmol/L (3.4-5.1); Sodium 134 mmol/L (137-145); Total Protein 5.5 g/dL (6.3-8.2)
[2022-09-04 12:27] LABS: Cholesterol, Total 247 mg/dL (100-199); HDL-Cholesterol 108 mg/dL (>39); LDL Particle 1098 nmol/L (<1000); LDL Size 21.2 nm (>20.5); LDL-Cholsterol 125 mg/dL (0-99); LP-IR Score <25 (<=45); Small LDL- Particle <90 nmol/L (<=527); Triglycerides 84 mg/dL (0-149)
== END ==
PROVIDERS: Family Provider Family Medicine; PCP Family Medicine; Referring Provider Specialist; Visit Provider Specialist
DX: E78.00 Pure hypercholesterolemia, unspecified (principal); R94.5 Abnormal results of liver function studies; R00.2 Palpitations; I48.0 Paroxysmal atrial fibrillation
CPT/HCPCS: 36415; 80053; 80061; 83704; 83735

== ENCOUNTER → 2023-01-01 12:20 | Outpatient (CLI) | payer MEDICARE, BC, SELFPAY ==
--- NOTE | 2023-01-01 12:22 | DI.RAD.S_ITS ---
PROCEDURE: XR HIP W PEL IF DONE RT 2V INDICATIONS: pain TECHNIQUE: AP pelvis with lateral view(s) of the right hip(s). COMPARISON: Outside Facility, [facility], XR PELVIS WITH LATERAL HIP, 10/02/2022, 9:10. FINDINGS: Bones: No fractures or dislocations. Pelvic ring appears intact. No suspicious bony lesions. Mild symmetric axial hip joint space narrowing with minimal periarticular osteophyte formation. Osseous prominence along the right femoral head/neck junction. Degenerative disc and facet disease involves the inferior lumbar spine. Soft tissues: The visualized bowel gas pattern is normal. No suspicious soft tissue calcifications. IMPRESSION: 1. Mild symmetric hip joint degeneration. 2. Osseous prominence along the head/neck junction on the right which can be associated with CAM type acetabular impingement in the appropriate clinical setting. If indicated, MRI could be performed for further assessment. Dictated by: Eyal JIMENEZ Interpreted: Diana Reyes MD on 01/01/2023 at 12:44 Transcribed by: JENA on 01/01/2023 at 12:46 Approved by: Diana eRyes M.D. on 01/02/2023 at 9:15
== END ==
PROVIDERS: Family Provider Family Medicine; PCP Family Medicine; Referring Provider Family Medicine; Visit Provider Family Medicine
DX: M16.11 Unilateral primary osteoarthritis, right hip (principal); M25.551 Pain in right hip
CPT/HCPCS: 73502

== ENCOUNTER → 2023-02-18 07:54 | Outpatient (CLI) | payer MEDICARE, BC, SELFPAY ==
[2023-02-18 09:51] LABS: Alanine Aminotransferase 21 IU/L (<35); Albumin 3.4 g/dL (3.5-5.0); Albumin Globulin Ratio 1.3 (1.0-2.8); Alkaline Phosphatase 43 U/L (38-126); Aspartate Aminotransferase 34 IU/L (14-36); BUN Creatinine Ratio 20.6 (6-22); Bilirubin Total 0.3 mg/dL (0.2-1.3); Blood Urea Nitrogen 13 mg/dL (7-17); Calcium 9.6 mg/dL (8.4-10.2); Carbon Dioxide 30 mmol/L (22-32); Chloride 103 mmol/L (98-107); Estimated Glomerular Filt Rate > 60 mL/min (>60); Globulin 2.6 g/dL (1.7-4.1); Glucose 86 mg/dL (80-110); HEMOLYSIS < 15 (0-50); Magnesium 1.9 mg/dL (1.6-2.3); Potassium 3.9 mmol/L (3.4-5.1); Sodium 139 mmol/L (137-145)
[2023-02-21 13:32] LABS: Cholesterol, Total 256 mg/dL (100-199); HDL-Cholesterol 120 mg/dL (>39); HDL-Particle (Total) 43.1 umol/L (>=30.5); LDL Particle 1062 nmol/L (<1000); LDL Size 21.1 nm (>20.5); LDL-Cholsterol 125 mg/dL (0-99); LP-IR Score <25 (<=45); Small LDL- Particle <90 nmol/L (<=527); Triglycerides 66 mg/dL (0-149)
== END ==
PROVIDERS: Family Provider Family Medicine; PCP Family Medicine; Referring Provider Specialist; Visit Provider Specialist
DX: I48.0 Paroxysmal atrial fibrillation (principal); E78.00 Pure hypercholesterolemia, unspecified
CPT/HCPCS: 36415; 80053; 80061; 80299; 83704; 83735

== ENCOUNTER → 2023-02-25 09:17 | Outpatient (CLI) | payer MEDICARE, BC, SELFPAY | PROVIDERS: Family Provider Family Medicine; PCP Family Medicine; Referring Provider Student in an Organized Health Care Education/Training Program; Visit Provider Surgery | DX: I87.2 Venous insufficiency (chronic) (peripheral) (principal); S41.102A Unspecified open wound of left upper arm, initial encounter; L97.812 Non-pressure chronic ulcer of other part of right lower leg with fat layer exposed; Z79.01 Long term (current) use of anticoagulants; Z87.891 Personal history of nicotine dependence | CPT/HCPCS: 11042; 87070; 87075; 87077; 87186; 87205; 99204; 99213 ==

== ENCOUNTER → 2023-03-04 13:55 | Outpatient (CLI) | payer MEDICARE, BC, SELFPAY | PROVIDERS: Family Provider Family Medicine; PCP Family Medicine; Referring Provider Student in an Organized Health Care Education/Training Program; Visit Provider Surgery | DX: I87.2 Venous insufficiency (chronic) (peripheral) (principal); L97.812 Non-pressure chronic ulcer of other part of right lower leg with fat layer exposed; S41.102D Unspecified open wound of left upper arm, subsequent encounter | CPT/HCPCS: 11042 ==

== ENCOUNTER → 2023-03-10 10:45 | Outpatient (CLI) | payer MEDICARE, BC, SELFPAY | PROVIDERS: Family Provider Family Medicine; PCP Family Medicine; Referring Provider Emergency Medicine; Visit Provider Surgery | DX: L97.212 Non-pressure chronic ulcer of right calf with fat layer exposed (principal); I87.2 Venous insufficiency (chronic) (peripheral); S41.102A Unspecified open wound of left upper arm, initial encounter | CPT/HCPCS: 11042; 99212 ==

== ENCOUNTER → 2023-03-17 15:31 | Outpatient (CLI) | payer MEDICARE, BC, SELFPAY | PROVIDERS: Family Provider Family Medicine; PCP Family Medicine; Referring Provider Student in an Organized Health Care Education/Training Program; Visit Provider Surgery | DX: I87.2 Venous insufficiency (chronic) (peripheral) (principal); L97.812 Non-pressure chronic ulcer of other part of right lower leg with fat layer exposed; R60.0 Localized edema; I48.91 Unspecified atrial fibrillation | CPT/HCPCS: 15271; 99213; Q4196 ==

== ENCOUNTER → 2023-03-24 10:22 | Outpatient (CLI) | payer MEDICARE, BC, SELFPAY | PROVIDERS: Family Provider Family Medicine; PCP Family Medicine; Referring Provider Student in an Organized Health Care Education/Training Program; Visit Provider Surgery | DX: I87.2 Venous insufficiency (chronic) (peripheral) (principal); L97.812 Non-pressure chronic ulcer of other part of right lower leg with fat layer exposed; I48.91 Unspecified atrial fibrillation | CPT/HCPCS: 15271; Q4196 ==

== ENCOUNTER → 2023-03-31 09:32 | Outpatient (CLI) | payer MEDICARE, BC, SELFPAY | PROVIDERS: Family Provider Family Medicine; PCP Family Medicine; Referring Provider Student in an Organized Health Care Education/Training Program; Visit Provider Surgery | DX: I87.2 Venous insufficiency (chronic) (peripheral) (principal); L97.812 Non-pressure chronic ulcer of other part of right lower leg with fat layer exposed; I48.91 Unspecified atrial fibrillation; E78.5 Hyperlipidemia, unspecified | CPT/HCPCS: 15271; 99213; Q4196 ==

== ENCOUNTER → 2023-04-07 09:35 | Outpatient (CLI) | payer MEDICARE, BC, SELFPAY | PROVIDERS: Family Provider Family Medicine; PCP Family Medicine; Referring Provider Student in an Organized Health Care Education/Training Program; Visit Provider Surgery | DX: I87.2 Venous insufficiency (chronic) (peripheral) (principal); L97.812 Non-pressure chronic ulcer of other part of right lower leg with fat layer exposed | CPT/HCPCS: 99213 ==

== ENCOUNTER → 2023-04-14 11:03 | Outpatient (CLI) | payer MEDICARE, BC, SELFPAY | PROVIDERS: Family Provider Family Medicine; PCP Family Medicine; Referring Provider Student in an Organized Health Care Education/Training Program; Visit Provider Surgery | DX: I87.2 Venous insufficiency (chronic) (peripheral) (principal) | CPT/HCPCS: 99212; 99213 ==

== ENCOUNTER → 2023-08-20 07:04 | Outpatient (CLI) | payer MEDICARE, BC, SELFPAY ==
[2023-08-20 08:09] LABS: Alanine Aminotransferase 21 IU/L (<35); Albumin 3.3 g/dL (3.5-5.0); Albumin Globulin Ratio 1.3 (1.0-2.8); Alkaline Phosphatase 48 U/L (38-126); Aspartate Aminotransferase 38 IU/L (14-36); BUN Creatinine Ratio 21.1 (6-22); Bilirubin Total 0.6 mg/dL (0.2-1.3); Blood Urea Nitrogen 12 mg/dL (7-17); Calcium 9.2 mg/dL (8.4-10.2); Carbon Dioxide 28 mmol/L (22-32); Chloride 108 mmol/L (98-107); Estimated Glomerular Filt Rate > 60 mL/min (>60); Globulin 2.6 g/dL (1.7-4.1); Glucose 94 mg/dL (80-110); HEMOLYSIS < 15 (0-50); Magnesium 1.8 mg/dL (1.6-2.3); Potassium 3.6 mmol/L (3.4-5.1); Sodium 138 mmol/L (137-145); Total Protein 5.9 g/dL (6.3-8.2)
[2023-08-22 10:15] LABS: Cholesterol, Total 256 mg/dL (100-199); HDL-Cholesterol 130 mg/dL (>39); HDL-Particle (Total) 43.2 umol/L (>=30.5); LDL Particle 695 nmol/L (<1000); LDL Size 21.3 nm (>20.5); LDL-Cholsterol 119 mg/dL (0-99); LP-IR Score <25 (<=45); Small LDL- Particle <90 nmol/L (<=527); Triglycerides 42 mg/dL (0-149)
== END ==
PROVIDERS: Family Provider Family Medicine; PCP Family Medicine; Referring Provider Specialist; Visit Provider Specialist
DX: R79.89 Other specified abnormal findings of blood chemistry (principal); I48.0 Paroxysmal atrial fibrillation; E78.00 Pure hypercholesterolemia, unspecified
CPT/HCPCS: 36415; 80053; 80061; 83704; 83735

== ENCOUNTER → 2023-11-04 08:41 | Outpatient (CLI) | payer MEDICARE, BC, SELFPAY ==
--- NOTE | 2023-11-04 09:29 | EKG_ITS ---
[address] [address] Test Date: 2023-11-04 Pat Name: Claire Nick Department: [facility] Room: Gender: Female [employer] Service Representative: BERNABE : 1950 Requested By: Order Number: [id number] Reading MD: Uday Horne Measurements Intervals [place] Rate: 53 P: 56 CA: 174 QRS: -28 QRSD: 94 T: 18 QT: 462 QTc: 433 Interpretive Statements Sinus bradycardia Septal infarct , age undetermined Electronically Signed On 11-04-2023 15:05:19 PDT by Uday Horne
[2023-11-04 09:38] LABS: Add Manual Diff / Slide Review NO; Basophils Absolute Auto 100 /uL (0-100); Basophils Percent Auto 0.9 % (0-2); Eosinophils Absolute Auto 100 /uL (0-450); Eosinophils Percent Auto 1.6 % (2-4); Hematocrit 42.8 % (36-46); Hemoglobin 14.1 g/dL (12.0-16.0); Lymphocytes Absolute Auto 1200 /uL (1100-4500); Lymphocytes Percent Auto 18.4 % (25-40); Mean Corpuscular HGB Conc 32.9 % (30-36); Mean Corpuscular Hemoglobin 30.8 PG (26-34); Mean Corpuscular Volume 93.6 fL (80-100); Monocytes Absolute Auto 500 /uL (0-900); Monocytes Percent Auto 7.7 % (3-14); Neutrophils Absolute Auto 4500 /uL (1500-7000); Neutrophils Percent Auto 71.4 % (50-75); Platelet Count 342 X10^3/uL (150-400); Red Blood Cell Count 4.58 X10^6/uL (4.0-5.2); Red Cell Distribution Width 14.9 % (11.6-14.8); White Blood Cell Count 6.3 X10^3/uL (4.5-11.0)
[2023-11-04 09:40] LABS: BUN Creatinine Ratio 23.5 (6-22); Blood Urea Nitrogen 16 mg/dL (7-17); Calcium 9.6 mg/dL (8.4-10.2); Carbon Dioxide 31 mmol/L (22-32); Chloride 104 mmol/L (98-107); Estimated Glomerular Filt Rate > 60 mL/min (>60); Glucose 89 mg/dL (80-110); HEMOLYSIS < 15 (0-50); Potassium 3.9 mmol/L (3.4-5.1); Sodium 136 mmol/L (137-145)
[2023-11-04 09:47] LABS: Hemoglobin A1C% w Est Avg Glu 5.4 % (4.0-6.0)
[2023-11-04 10:15] LABS: Appearance Urine UA CLEAR; Bilirubin Urine UA NEGATIVE (NEGATIVE); Color Urine UA YELLOW; Glucose Urine UA NEGATIVE (Negative); Ketones Urine UA NEGATIVE (NEGATIVE); Leukocyte Esterase Urine UA TRACE (NEGATIVE); Nitrite Urine UA NEGATIVE (Negative); Occult Blood Urine UA NEGATIVE (Negative); Protein Urine UA NEGATIVE (Negative); Specific Gravity Urine UA 1.025 (1.000-1.035); Urobilinogen Urine UA 0.2 E.U./dL (0.2)
[2023-11-04 10:17] LABS: pH Urine UA 5.5 (4.5-8.0)
[2023-11-04 10:26] LABS: Bacteria Urine Occasional (0-1); Culture Indicated Urine Cult Not Indicated; RBC Urine 0-1/HPF (0-5/HPF); Squamous Epithelial Cell Urine 1-5 /HPF (0-5/HPF); Urine Volume Low Vol <10mL (spun); WBC Urine 0-1/HPF (0-5/HPF)
== END ==
PROVIDERS: Family Provider Family Medicine; PCP Family Medicine; Referring Provider Orthopaedic Surgery; Visit Provider Orthopaedic Surgery
DX: Z01.818 Encounter for other preprocedural examination (principal); R73.9 Hyperglycemia, unspecified; Z01.812 Encounter for preprocedural laboratory examination; N39.0 Urinary tract infection, site not specified
CPT/HCPCS: 36415; 80048; 81001; 83036; 85025; 93005

== ENCOUNTER 2023-12-15 06:14 | Day surgery (SDC) | payer MEDICARE, OTHER, SELFPAY ==
[2023-12-09 08:26] VITALS: BMI 21.4
[2023-12-15] VITALS (10 sets, daily range): BP systolic 121–134; BP diastolic 55–70; PULSE 59–75; RESP 11–18; TEMP 35.7–36.8; O2SAT 93–99; BMI 21.7
--- NOTE | 2023-12-15 | DI.RAD.S_ITS ---
PROCEDURE: XR HIP W PEL IF DONE RT 2V INDICATIONS: RIGHT ABELARDO TECHNIQUE: 3 views of the hip were acquired. COMPARISON: [facility], , XR HIP W PEL IF DONE RT 2V, 01/01/2023, 12:30. FINDINGS: Intraoperative fluoroscopic spot films during a right total hip arthroplasty obtained. IMPRESSION: Fluoroscopic guidance Approved by: Jose Ibarra M.D. on 12/15/2023 at 11:59
--- NOTE | 2023-12-15 06:00 | DI.RAD.S_ITS ---
PROCEDURE: XR HIP W PEL IF DONE RT 2V INDICATIONS: right total hip arthroplasty post op films TECHNIQUE: AP pelvis and lateral view of the hip acquired. COMPARISON: [facility], [place], XR HIP W PEL IF DONE RT 2V, 12/15/2023, 9:00. FINDINGS: Bones: Patient is status post total right hip arthroplasty, with hardware components in expected positions. The hip joint appears congruent. The visualized bony structures appear intact. Soft tissues: Overlying postoperative changes are noted. No suspicious soft tissue densities. IMPRESSION: Expected immediate postoperative appearance, status post total right hip arthroplasty. Dictated by: Juanito Vigil M.D. on 12/15/2023 at 10:55 Approved by: Juanito Vigil M.D. on 12/15/2023 at 10:55
[2023-12-15] MEDS: ACETAMINOPHEN 325 MG TABLET 975 MG PO ×2 (06:40→12:46)
[2023-12-15] MEDS: VANCOMYCIN 1,000 MG/200 ML PIGGYBACK 200 MG IV (06:40)
[2023-12-15] MEDS: LACTATED RINGERS 1,000 ML 42 ML IV (06:40)
[2023-12-15] MEDS: CELECOXIB 200 MG CAPSULE PO (06:40)
--- NOTE | 2023-12-15 07:36 | SUR.OPER ---
Supine on padded [place] table with bilateral legs secured in padded positioning boots and suspended in positioning spars, operative leg in traction per surgeon. Head on one pillow. Arm on non-operative side secured on padded armboard <90 degrees abduction. Arm on operative side padded and resting across chest then secured with tape over sheet. Padded perineal post in place per surgeon.
--- NOTE | 2023-12-15 07:44 | P.OP_ITS ---
Operative Date/Time/Diagnoses Date of procedure: 12/15/23 Time of procedure: 07:45 Pre-op diagnosis: Right hip OA Post-op diagnosis: same Procedure & Clinicians Procedure: Right total hip arthroplasty anterior approach Same procedure as scheduled: Yes Indications: The patient has had progressively worsening right hip pain with radiographic c hanges consistent with arthritis. Non-operative management has failed and the patient has requested total hip replacement. The risks, benefits and alternatives to surgery were discussed with the patient prior to proceeding. Risks discussed included, but were not limited to, failure to relieve pain, leg length discrepancy, dislocation, stiffness, infection, nerve damage, deep venous thrombosis, pulmonary embolism, stroke, coma, heart attack, permanent paralysis and , as well as the potential need for eventual revision of the prosthetic. Surgeon: Emma Gonzalez Small Business Representative: Roderick Shepherd Anesthesia Type: General and Spinal Operative Notes Findings: Severe right hip OA, Closure Type: primary Specimen(s): none sent Prosthetic devices, grafts, tissues, transplants, or devices: [employer] R3 52 mm cup, neutral poly liner,one 6.5 mm screw, polar stem valgus size 2, 36 x +0 cobalt chrome head Estimated Blood Loss (mL): 250 Blood products transfused: none Procedure in detail: The patient was brought to the operating room. Patient was carefully positioned in the supine position. Time-out was performed and antibiotics were given. Anesthesia was induced. She was positioned in the on the table in order to allow hyperextension of the hip. The right lower extremity was prepped and draped in a standard sterile fashion. An anterior right hip incision was made 1 fingerbreadth lateral to the anterior superior iliac spine and extended distally towards the greater trochanter. Dissection was carried out through skin and subcutaneous tissues. Superficial hemostasis was achieved. The fascia over the tensor fascia tameka was defined and incised with a knife. Two Allis clamps were used to grasp the fascia. Tensor fascia tameka was retracted laterally. A gelpi retractor was placed. Dissection was carried out down along the neck. The circumflex vessels were carefully identified and cauterized with the Aqua Mantis. A PA was used during the procedure and was essential for intraoperative retraction and safe implantation of the components. There was good visualization of the femoral neck. A Cobra was placed superior to the neck and the gluteus fibers were carefully stripped from that superior aspect of the capsule. A 2nd retractor was placed along the inferior aspect of the neck. The rectus insertion along the capsule was partially released. A 3rd retractor that was then gently placed over the rim of the acetabulum under the rectus. Capsule was carefully incised and released from the intertrochanteric line circumferentially superior to the mid sagittal line and inferiorly to the mid sagittal line until the lesser trochanter was palpable. A tag stitch was placed both in the superior and inferior limb of the capsular insertion. Along the acetabulum capsule was also released up to the mid sagittal 12:00 position. A portion of the labrum was resected. A saw was used to perform an osteotomy at the level of the intertrochanteric line and the junction of the superior femoral neck leaving approximately 1 finger breath of residual inferior neck above the lesser trochanter. A 2nd cut was made along the femoral neck at the base of the head and a napkin ring of neck was removed. Corkscrew was placed in the femoral head and the head was removed without difficulty. Retractors were then repositioned around the acetabulum. Residual labrum was resected and additional osteophytes were removed. A reamer that was 4 mm below the templated size was placed by hand in the acetabulum and it was reamed to centralize the acetabulum. It was then reamed up to 2 under the templated size and fluoroscopy was brought in to confirm the position of the reaming and depth of reaming. I reamed 1 under the anticipated size. A trial cup was placed and noted that it was appropriately sized and fluoroscopy confirmed position and depth. The component was open and inserted without difficulty fluoroscopic imaging was used to confirm that the cup had been adequately seated and was well positioned. It was further stabilized with a screw. Neutral poly liner was placed. The cup was tested and noted to be stable. Attention was then directed to the femur. The femur was gently hyperextended additional capsular release was performed as needed in order to allow adequate visualization of the proximal femur with elevation of the femur. Patient was placed in a hyperextended slightly adducted position with maximum external rotation. Box osteotome was used to check for any residual neck as well as sclerotic bone along the trochanter. [place] pepper was placed in the femur. Additional broaching was performed. Canal finder was used to determine the alignment of the canal and position. Size 1 broach was placed. The canal was then appropriately broached up to the templated size as long as there was adequate stability of the broach and serial advancement of the broach without excessive impingement. Specific attention was directed at avoiding varus attempting to direct the distal aspect of the broach more anteriorly and avoiding excessive anteversion. Trial reduction showed acceptable range of motion, good stability, no posterior impingement, church of leg length and appropriate lateral shuck. I also hyperflexed the hip and checked that there was no impingement anteriorly and there was good stability with flexion, adduction and internal rotation. Marcaine and Exparel were injected. The stem was placed without difficulty. Repeat trial reduction and x-ray showed acceptable overall position, length, and no evidence of the femoral fracture. Final head was placed. Wound was meticulously irrigated with normal saline. The hip was reduced and additional Exparel and Marcaine were injected. The capsule was closed with interrupted nonabsorbable sutures. The fascia of the tensor was closed with interrupted and running Vicryl. No drain was placed. Any tensor fascia tameka muscle that appeared to be contused or injured which was a minimal amount was carefully resected. Capsule around the tensor was injected with Exparel and Marcaine. The skin was closed with barbed stitches for the subcutaneous tissue and skin. We also used surgical glue. The wound was dressed sterilely. Brief Betadine soak was also used and was meticulously irrigated with normal saline. Patient was transferred to recovery room in satisfactory condition. Complications: none Post-operative Condition: stable Disposition: Acute Care Plan for aftercare: The patient will be maintained on a standard total hip replacement protocol with weight bearing as tolerated and anterior hip precautions. The patient will receive Eliquis and sequential compression devices for DVT prophylaxis. The patient will be discharged home when safe for the home environment.
--- NOTE | 2023-12-15 07:44 | PM.PREOP ---
Pre-operative Note Interval Note History & Physical reviewed/Exam performed by Physician: Yes Changes to H&P: No
[2023-12-15] MEDS: CEFAZOLIN 2 GM/100 ML PREMIX 100 ML IV (07:55)
[2023-12-15] MEDS: BUPIVACAINE 0.25% (PF) 30 ML, EPINEPHrine 0.15 MG INJ (09:13)
[2023-12-15] MEDS: BUPIVACAINE LIPOSOME 266 MG/20 ML VIAL INJ (09:52)
[2023-12-15] MEDS: TRANEXAMIC ACID 1,000 MG VIAL 1000 MG INJ (09:52)
[2023-12-15] MEDS: OXYCODONE IR 5 MG TABLET PO ×2 (10:30→12:46)
[2023-12-15] MEDS: hydrOXYzine 50 MG/ML INJ 25 MG IM (10:31)
--- NOTE | 2023-12-15 11:10 | SUR.PHASEII ---
Placed patient in room 5 in anticipation of going home from Phase 2; repositioned patient in bed for comfort; call light in place. Physical Therapy aware of need for evaluation when spinal level has worn off. Offered patient lunch tray but patient declines at this time. at bedside.
[2023-12-15] MEDS: LACTATED RINGERS 1,000 ML 100 ML IV (11:37)
[2023-12-15] MEDS: ONDANSETRON 4 MG/2 ML INJ IV (12:46)
--- NOTE | 2023-12-15 14:50 | SUR.PHASEII ---
1420: Patient still unable to bear full weight to right leg; pain tolerable at 4/10; assisted patient to the bathroom via wheelchair; patient able to void without difficulty. Assisted patient back to bed and notified Physical Therapist of progress. PT will come evaluate.
--- NOTE | 2023-12-15 15:59 | PC.NURSE ---
1420: Patient able to bend knee and lift foot but still unable to bear complete weight to right leg. Will reassess in one hour. at bedside and supportive.
--- NOTE | 2023-12-15 16:00 | SUR.PHASEII ---
Called Physical Therapy staff at 1530 to inquire if evaluation could be done since patient and are ready to go home and are tired of waiting for evaluation. Message given to PT. At approximately 1550, PT staff arrives to assess but patient desiring to go home. No evaluation done by Physical Therapy.
--- NOTE | 2023-12-15 16:55 | PT-IP ANOTE ---
Called PACU nurse ~ 1400 and stated that pt is not ready to do PT. stated that pt unable to put weight on RLE during toilet transfer. nurse stated that PT can come down and check on pt. informed nurse that if she is saying that pt is not ready, PT has to just check back later and will just have to see other pts first. received message from OT ~ 1540 that pt is ready for PT per PACU nurse. checked on pt and nurse in room with pt. nurse stated that they are just sending pt home since pt is doing well. informed nurse, as long as she knows her precautions. nurse asked pt if she can sit on the w/c and PT to talk to pt for a minute. informed pt and nurse that if PT will do an eval, PT has to do a complete evaluation. pt stated that she is ready to go home and declined PT. provided pt with post-op folder.
== END 2023-12-15 15:57 | disposition home or self-care (01) ==
LOC: OR 06:16 → AC 06:17
PROVIDERS: Family Provider Family Medicine; PCP Family Medicine; Referring Provider Orthopaedic Surgery; Visit Provider Orthopaedic Surgery
PROC: (CPT 27130; principal; 2023-12-15 07:45)
DX: M16.11 Unilateral primary osteoarthritis, right hip (principal); M25.751 Osteophyte, right hip
CPT/HCPCS: 27130; 73502; 76000; C1713; C1776; C9290; J0171; J0690; J1100; J2405; J2704; J3010; J3410

== ENCOUNTER → 2024-02-15 07:32 | Outpatient (CLI) | payer MEDICARE, OTHER, SELFPAY ==
[2024-02-15 08:37] LABS: Hematocrit 40.9 % (36-46); Hemoglobin 13.6 g/dL (12.0-16.0); Mean Corpuscular HGB Conc 33.2 % (30-36); Mean Corpuscular Hemoglobin 30.1 PG (26-34); Mean Corpuscular Volume 90.6 fL (80-100); Platelet Count 351 X10^3/uL (150-400); Red Blood Cell Count 4.51 X10^6/uL (4.0-5.2); Red Cell Distribution Width 14.4 % (11.6-14.8); White Blood Cell Count 6.2 X10^3/uL (4.5-11.0)
[2024-02-15 08:56] LABS: Alanine Aminotransferase 18 IU/L (<35); Albumin 3.4 g/dL (3.5-5.0); Albumin Globulin Ratio 1.2 (1.0-2.8); Alkaline Phosphatase 60 U/L (38-126); Aspartate Aminotransferase 33 IU/L (14-36); BUN Creatinine Ratio 22.4 (6-22); Bilirubin Total 0.6 mg/dL (0.2-1.3); Blood Urea Nitrogen 15 mg/dL (7-17); Carbon Dioxide 30 mmol/L (22-32); Chloride 101 mmol/L (98-107); Estimated Glomerular Filt Rate > 60 mL/min (>60); Globulin 2.8 g/dL (1.7-4.1); Glucose 93 mg/dL (80-110); HEMOLYSIS < 15 (0-50); Magnesium 1.8 mg/dL (1.6-2.3); Potassium 4.3 mmol/L (3.4-5.1); Sodium 136 mmol/L (137-145); Total Protein 6.2 g/dL (6.3-8.2)
[2024-02-17 07:15] LABS: Cholesterol, Total 250 mg/dL (100-199); HDL-Cholesterol 111 mg/dL (>39); HDL-Particle (Total) 39.1 umol/L (>=30.5); Historical Reading Comment: (.); LDL Particle 965 nmol/L (<1000); LDL Size 21.1 nm (>20.5); LDL-Cholsterol 129 mg/dL (0-99); LP-IR Score <25 (<=45); Small LDL- Particle <90 nmol/L (<=527); Triglycerides 60 mg/dL (0-149)
== END ==
PROVIDERS: Family Provider Family Medicine; PCP Family Medicine; Referring Provider Specialist; Visit Provider Specialist
DX: E78.00 Pure hypercholesterolemia, unspecified (principal); R79.89 Other specified abnormal findings of blood chemistry; Z79.01 Long term (current) use of anticoagulants; I48.0 Paroxysmal atrial fibrillation
CPT/HCPCS: 36415; 80053; 80061; 80299; 83704; 83735; 85027

== ENCOUNTER → 2024-03-21 12:04 | Outpatient (CLI) | payer MEDICARE, OTHER, SELFPAY ==
--- NOTE | 2024-03-21 12:06 | DI.RAD.S_ITS ---
PROCEDURE: XR CHEST 2V INDICATIONS: COUGH TECHNIQUE: 2 views of the chest were acquired. COMPARISON: [facility], , CHEST 1 VIEW, 10/20/2014, 12:12. FINDINGS: Surgical changes and devices: None. Lungs and pleura: Moderate right pleural effusion. Mediastinum: Mediastinal contours are normal. Heart size is normal. Bones and chest wall: No suspicious bony abnormalities. Soft tissues appear unremarkable. IMPRESSION: Moderate right pleural effusion. Consider chest CT with contrast to evaluate for malignancy or pneumonia, as a unilateral pleural effusion is worrisome. Dictated by: Bill Vick M.D. on 03/21/2024 at 12:28 Approved by: Bill Vick M.D. on 03/21/2024 at 12:29
== END ==
PROVIDERS: Family Provider Family Medicine; PCP Family Medicine; Referring Provider Family Medicine; Visit Provider Family Medicine
DX: J90 Pleural effusion, not elsewhere classified (principal); R05.9 Cough, unspecified
CPT/HCPCS: 71046

== ENCOUNTER → 2024-03-25 11:31 | Outpatient (CLI) | payer MEDICARE, OTHER, SELFPAY ==
--- NOTE | 2024-03-25 11:34 | DI.CT.S_ITS ---
PROCEDURE: CT CHEST W CON INDICATIONS: right pleural effusion TECHNIQUE: After the administration of intravenous contrast, 5 mm thick sections acquired from the pulmonary apices to the posterior costophrenic angles. 1 mm axial lung, 5 mm thick coronal and sagittal reformats and 7 mm axial MIP were acquired. For radiation dose reduction, the following was used: automated exposure control, adjustment of mA and/or kV according to patient size. COMPARISON: [facility], CR, XR CHEST 2V, 03/21/2024, 12:05. FINDINGS: Image quality: Diagnostic. Lower Neck: No enlarged lymph nodes. Thyroid: No thyroid nodules which require sonographic follow up, per consensus guidelines. Axillae: No enlarged lymph nodes. Chest Wall: Unremarkable. Bones: Mild heterogeneity of the spinal radiodensity but no definite osteolytic or blastic bone lesions. This appearance may simply reflect degenerative change.. Lungs and Pleura: No pneumothorax. No left-sided pleural effusions. There is a large right pleural effusion that shows exudative characteristics as indicated by mild pleural thickening and enhancement. 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 Additionally, within the medial right lower lobe there is a combination of alveolar consolidation and what appears to be a lobulated mass lesion measuring up to 8.4 x 3.7 cm abutting the right pericardial margins. A pericardial effusion is not associated. Heart: Heart size is normal. No pericardial effusion. Thoracic Vessels: The aorta and pulmonary arteries demonstrate normal size. Mediastinum and Sally: Scattered mildly enlarged abnormally enhancing mediastinal lymph nodes are best seen in the precarinal space and at the superior margin of the right esophagus. Esophagus: No wall thickening. No hiatal hernia. Upper Abdomen: Visualized upper abdomen solid organs and bowel loops appear normal except for mild heterogeneity involving the small portion of the liver included on this study indicating potential for early hepatic metastatic disease. IMPRESSION: Large malignant-appearing pleural effusion on the right, exudative in character, with pleural nodularity and enhancement best seen along the diaphragmatic and right lateral lung base margins. A lung mass likely is present within the medial right lower lobe measuring up to 8.4 x 3.7 cm associated with the effusion abnormality. Malignant-appearing mild adenopathy is seen within the middle mediastinum as discussed, including adjacent to the right margin of the upper esophagus. Suspect early hepatic metastatic disease partially visualized. Mild heterogeneity of the spinal osseous radiodensity, potentially a manifestation of early osseous metastatic disease in this clinical circumstance. Dictated by: Daniele Cuenca M.D. on 03/25/2024 at 14:19 Approved by: Daniele Cuenca M.D. on 03/25/2024 at 14:38
== END ==
PROVIDERS: Family Provider Family Medicine; PCP Family Medicine; Referring Provider Family Medicine; Visit Provider Family Medicine
DX: J90 Pleural effusion, not elsewhere classified (principal); R91.8 Other nonspecific abnormal finding of lung field; R59.0 Localized enlarged lymph nodes; M89.9 Disorder of bone, unspecified; K76.9 Liver disease, unspecified
CPT/HCPCS: 36415; 71260; 82565; Q9967

== ENCOUNTER → 2024-03-25 11:39 | Outpatient (CLI) | payer MEDICARE, OTHER, SELFPAY ==
[2024-03-25 12:13] LABS: Estimated Glomerular Filt Rate > 60 mL/min (>60)
== END ==
PROVIDERS: Family Provider Family Medicine; PCP Family Medicine; Referring Provider Family Medicine; Visit Provider Family Medicine
DX: J90 Pleural effusion, not elsewhere classified (principal)
CPT/HCPCS: 36415; 82565

== ENCOUNTER → 2024-03-28 14:40 | Outpatient (CLI) | payer MEDICARE, OTHER, SELFPAY ==
--- NOTE | 2024-03-28 | DI.RAD.S_ITS ---
PROCEDURE: XR CHEST 1V INDICATIONS: TUBE PLACEMENT TECHNIQUE: One view of the chest was acquired. COMPARISON: [facility], CR, XR CHEST 1V, 03/28/2024, 16:06. [facility], CR, XR CHEST 2V, 03/21/2024, 12:05. FINDINGS: Surgical changes and devices: Interval right-sided chest tube present. Lungs and pleura: Significant reduction in right-sided pneumothorax. Stable layering right-sided pleural effusion. Mediastinum: Mediastinal contours appear normal. Heart size is normal. Bones and chest wall: No suspicious bony lesions. Subcutaneous gas overlying the right chest wall. IMPRESSION: Interval right-sided chest tube present. Reduction of the right-sided pneumothorax and similar size of the right-sided pleural effusion. Dictated by: Bill Vick M.D. on 03/28/2024 at 18:33 Approved by: Bill Vick M.D. on 03/28/2024 at 18:36
--- NOTE | 2024-03-28 14:41 | DI.US.S_ITS ---
PROCEDURE: US THORACENTESIS DIAGNOSTIC INDICATIONS: pleural effusion, consern metastatic TECHNIQUE: The indications, alternatives, benefits, risks, and complications of the procedure were explained to the patient. Written informed consent was obtained and placed in the chart. The chest was examined sonographically, and an appropriate site was chosen for thoracentesis. The skin was prepared and draped in the usual sterile fashion, and 1% lidocaine was infiltrated from the skin down through the pleural surface. A 19-gauge catheter-covered needle was then introduced into the pleural space, the catheter was advanced and the needle was withdrawn, and thereafter pleural fluid was aspirated. The catheter was then removed and a dressing was applied. COMPARISON: None. FINDINGS: Access site: Right hemithorax. Needle: One-Step centesis catheter with introducer needle. Fluid volume and description: 1500 cc of clear yellowish fluid. Fluid sent for diagnostic testin cc was sent for testing. Medications: 1% lidocaine for local anaesthesia. Complications: None; post-procedural chest radiograph is pending to assess for pneumothorax. IMPRESSION: Successful ultrasound-guided thoracentesis. Dictated by: Richard Fulton M.D. on 03/28/2024 at 17:03 Approved by: Richard Fulton M.D. on 03/28/2024 at 17:03
--- NOTE | 2024-03-28 16:07 | DI.RAD.S_ITS ---
PROCEDURE: XR CHEST 1V INDICATIONS: POST THORACENTESIS TECHNIQUE: One view of the chest was acquired. COMPARISON: [facility], , XR CHEST 2V, 03/21/2024, 12:05. FINDINGS: Surgical changes and devices: None. Lungs and pleura: Moderate size right-sided pneumothorax is seen post right thoracentesis. Left lung is clear. Mediastinum: Mediastinal contours appear normal. Heart size is normal. Bones and chest wall: No suspicious bony lesions. Overlying soft tissues appear unremarkable. IMPRESSION: Moderate size right-sided pneumothorax post right thoracentesis. Patient was instructed to go to the ER for chest tube placement. Dictated by: Richard Fulton M.D. on 03/28/2024 at 16:17 Approved by: Richard Fulton M.D. on 03/28/2024 at 16:21
--- NOTE | 2024-03-28 16:15 | PATH_ITS ---
Note [facility] Accession Number: [id number] TESTS RESULT FLAG UNITS REF RANGE LAB Clinician Provided Cytology Information No. of containers..01 Other (Miscellaneous) Source: PLEURAL FLUID DIAGNOSIS: 01 PLEURAL FLUID NEGATIVE FOR MALIGNANT CELLS. THIS INTERPRETATION INCLUDES EVALUATION OF A CELL BLOCK. Pathologist ICD10: J90 Signed out by: Natacha Richter MD, Pathologist NPI- [id number] Performed by: [place], Residential Monitor ([facility]) Gross description: 20 CC, YELLOW, CLEAR RECEIVED: FRESH IN BLUE CAP CONTAINER.VO /VDU 03/29/2024 0952 Local FLAG LEGEND: L-Low Normal,H-High Normal,LL-Alert Low,HH-Alert High <-Panic Low,>-Panic High,A-Abnormal,AA-Critical Abnormal Performed at: 01 =Z [facility] [employer] [facility] [address] [facility], [place] [address] Dhiraj Reyes MD, Specimen Comment: A duplicate report has been generated due to demographic updates. Performed at: 01 [facility] [address] [address], [place], [place] [id number] MD Dhiraj Reyes MD Phone: [phone]
[2024-03-28 17:13] LABS: Body Fluid Tot Nucleated Cells 327 /uL
[2024-03-28 17:17] LABS: Body Fluid Red Blood Cells < 1000 /uL
[2024-03-28 18:25] LABS: Body Fluid Appearance CLEAR; Body Fluid Clotted? NO CLOTS PRESENT; Body Fluid Color YELLOW
[2024-03-28 18:28] LABS: Lymphocytes Body Fluid 87 %; MESO/MACRO/MONO Body Fluid 9 %; Neutrophils Body Fluid 4 %
== END ==
PROVIDERS: Family Provider Family Medicine; PCP Family Medicine; Referring Provider Family Medicine; Visit Provider Family Medicine
DX: J90 Pleural effusion, not elsewhere classified (principal); J95.811 Postprocedural pneumothorax
CPT/HCPCS: 32555; 71045; 82945; 83615; 87070; 87075; 87205; 89051

== ENCOUNTER 2024-03-28 16:23 | Inpatient (IN) | payer MEDICARE, OTHER, SELFPAY ==
[2024-03-28] VITALS (37 sets, daily range): BP systolic 113–210; BP diastolic 56–96; PULSE 52–79; RESP 11–28; TEMP 36.2–36.4; O2SAT 94–100; BMI 20.9
--- NOTE | 2024-03-28 16:47 | ED.SOB ---
HPI - SOB/Dyspnea <DO Adam Callahan Last Filed: 03/28/24 21:31> General Chief Complaint: Shortness of Breath/Dyspnea Stated Complaint: sent by DI for collapsed lung Time Seen by Provider: 03/28/24 16:32 Source: patient Mode of arrival: Ambulatory History of Present Illness HPI Narrative: Patient is a 74-year-old female history of breast cancer in 2009, atrial fibrillation on Eliquis, had a thoracentesis today for pleural effusion presents today to the ED with a iatrogenic pneumothorax. She had a CT on 03/25/2024 4 right pleural effusion which found a 8.4 x 3.7 right lung mass concerning for malignancy. She had 1500 cc drained by the thoracentesis. She had quite a bit of coughing afterwards per Radiology. She is hemodynamically stable has some mild discomfort on the right side. Related Data Home Medications Medication Instructions Recorded Confirmed cholecalciferol (vitamin D3) 125 125 mcg PO DAILY ##0 12/09/12 03/28/24 mcg (5,000 unit) tablet (Vitamin D3) [id number] 250 2 tab PO PRN PRN Pain 12/09/23 03/28/24 mg-250 mg-65 mg tablet (Excedrin Extra Strength) flecainide 150 mg tablet 75 mg PO Q12H 12/09/23 03/28/24 metoprolol succinate 25 mg 12.5 mg PO DAILY 12/09/23 03/28/24 tablet,extended release 24 hr (Toprol XL) atorvastatin 10 mg tablet 10 mg PO DAILY 02/16/24 03/28/24 magnesium oxide 400 mg (241.3 mg 400 mg PO BID 02/16/24 03/28/24 magnesium) tablet omeprazole 40 mg capsule,delayed 20 mg PO BID 03/28/24 03/28/24 release Previous Rx's Medication Instructions Recorded apixaban 5 mg tablet (Eliquis) 5 mg PO BID #60 tabs 09/09/17 clotrimazole 1 % topical cream 1 applic topical BID #45 grams 02/16/24 nystatin 100,000 unit/gram topical 1 applic topical DAILY #60 grams 02/16/24 powder Allergies Allergy/AdvReac Type Severity Reaction Status Date / Time No Known Drug Allergies Allergy Verified 03/28/24 16:39 Patient History <DO Adam Callahan Last Filed: 03/28/24 21:31> Medical History Easy bruisability Osteoarthritis Hx of supraventricular tachycardia (10/2016) Sinus bradycardia Breast cancer (2009) DVT (deep venous thrombosis) (2012) PSVT (paroxysmal supraventricular tachycardia) (2014) Cardiac arrhythmia (2014) Atrial fibrillation (2016) Hyperlipidemia (2004) GERD (gastroesophageal reflux disease) (2001) Anesthesia Surgical History History of colonoscopy (2008) Normal colonoscopy (2008) History of total mastectomy (2009) Status post colposcopy (2008) Family History Father No problems noted. Mother No problems noted. Social History marital status: number of children: 2 household members: spouse lives independently: Yes caregiver/support person: No housing: house Smoking Status: Former smoker second hand exposure: No alcohol intake: current substance use type: does not use Smoking Status: Former smoker alcohol intake frequency: 0-2 drinks per day Alcohol type: wine Substance Use Type: does not use Exam <Joyce Roach DO - Last Filed: 03/28/24 21:31> Initial Vital Signs Initial Vital Signs: Vital Signs Temperature 97.5 F L 03/28/24 16:38 Pulse Rate 55 L 03/28/24 16:38 Respiratory Rate 16 03/28/24 16:38 Blood Pressure 177/76 H 03/28/24 16:38 Pulse Oximetry 98 03/28/24 16:38 Oxygen Delivery Method Room Air 03/28/24 16:38 GENERAL: Alert thin 74-year-old female and in no acute distress. HEENT: Head atraumatic,EOMI, pupils reactive, face symmetric, moist mucous membranes CARDIOVASCULAR: Regular rate and rhythm without murmurs, rubs or gallops. RESPIRATORY: Breath sounds equal bilaterally, no wheezes rales or rhonchi. ABDOMEN: Soft, nontender. Normoactive bowel sounds all 4 quadrants. No guarding or rebound. EXTREMITIES: Normal range of motion, no clubbing or edema. Neurovascularly intact NEUROLOGICAL: Alert and oriented x4.Normal gait and speech. Cranial nerves II through XII grossly intact. SKIN: Warm, dry, no laceration, no petechiae, no rashes or lesions. <Mary Perkins, DO - Last Filed: 03/28/24 22:50> Initial Vital Signs Initial Vital Signs: Vital Signs Temperature 97.5 F L 03/28/24 16:38 Pulse Rate 55 L 03/28/24 16:38 Respiratory Rate 16 03/28/24 16:38 Blood Pressure 177/76 H 03/28/24 16:38 Pulse Oximetry 98 03/28/24 16:38 Oxygen Delivery Method Room Air 03/28/24 16:38 Procedures <Joyce Roach DO - Last Filed: 03/28/24 21:31> Chest Tube Chest Tube 1: Chest Tube Location: right and mid axillary line Size of Tube (cm): 24 Chest Tube Prep: Yes betadine prep and sterile drapes applied Local Anesthetic: lidocaine 1% Amount of anesthesia used (mL): 10 Incision Made With: #11 blade Post Procedure: sutured to skin and sterile dressing applied Tube Drainage: fluid Amount of initial drainage (mL): 120 Post Procedure CXR?: Yes Patient Tolerated Procedure: Yes Procedural Sedation Consent signed: Yes Time out performed: Yes Indication: other (chest tube) ASA Class: II Mallampati Airway Classification: Class II IV Propofol dose (mg): 60 Intraservice time/total sedation time (min): 13 ED Sedation Level: Moderate (Concious) Patient Tolerated Procedure: Well and No complications Complications: none Course <Joyce Roach, DO - Last Filed: 03/28/24 21:31> Orders Ordered: ED Orders 03/28/24 16:40 CBC Auto Diff [Complete Blood Count AUTO DIFF] Stat CMP [Comprehensive Metabolic Panel] Stat Prothrombin Time INR Stat Acetaminophen (Acetaminophen 325 Mg Tablet) 650 mg PO Q6H PRN PRN Reason: Fever/Mild Pain (1-3) Acetaminophen (Acetaminophen 325 Mg Tablet) 650 mg PO Q6HR PRN PRN Reason: Fever/Mild Pain (1-3) Hydrocodone Bitart/Acetaminophen (Hydrocodone/Acet 5/325 Tablet) 1 tab PO Q6HR PRN PRN Reason: Pain, Moderate (4-6) Last Admin: 03/28/24 20:42 Dose: 1 tab Documented By: JAVIER Hydromorphone HCl (Hydromorphone 1 Mg Inj) 1 mg IV Q2HR PRN PRN Reason: Pain, Moderate (4-6) Last Admin: 03/28/24 20:43 Dose: 1 mg Documented By: JAVIER Sodium Chloride (Normal Saline 0.9%) 1,000 mls @ 125 mls/hr IV CONT [place] Morphine Sulfate (Morphine 4 Mg/Ml Inj) 4 mg IV Q2HR [place] Ondansetron HCl (Ondansetron 4 Mg/2 Ml Inj) 4 mg IV Q4HR PRN PRN Reason: Nausea And Vomiting Discontinued Medications Apixaban (Apixaban 5 Mg Tablet) 5 mg PO NOW ONE Stop: 03/28/24 20:06 Last Admin: 03/28/24 20:42 Dose: Not Given Documented By: JAVIER Flecainide Acetate (Flecainide 100 Mg Tablet) 75 mg PO NOW ONE Stop: 03/28/24 20:06 Last Admin: 03/28/24 20:51 Dose: 75 mg Documented By: JAVIER Hydromorphone HCl (Hydromorphone 0.5 Mg Inj) 0.5 mg IV NOW ONE Stop: 03/28/24 20:06 Last Admin: 03/28/24 20:52 Dose: Not Given Documented By: JAVIER Acetaminophen (Ofirmev) 1,000 mg in 100 mls @ 400 mls/hr IV NOW ONE Stop: 03/28/24 18:36 Last Infusion: 03/28/24 18:55 Dose: Infused Documented By: Admin: 03/28/24 18:33 Dose: 400 mls/hr Documented By: ETTA Ondansetron HCl (Ondansetron 4 Mg/2 Ml Inj) 4 mg IV NOW ONE Stop: 03/28/24 20:27 Last Admin: 03/28/24 20:43 Dose: 4 mg Documented By: JAVIER Propofol (Propofol 200 Mg/20 Ml Vial) 60 mg 1 mg/kg (60 mg) IV NOW ONE Stop: 03/28/24 17:15 Last Admin: 03/28/24 17:48 Dose: 60 mg Documented By: ETTA Vital Signs Vital signs: Vital Signs - 8 hr 03/28/24 16:38 03/28/24 16:47 03/28/24 17:00 Temperature 97.5 F L Pulse Rate 55 L 54 L 52 L Respiratory Rate 16 18 18 Blood Pressure 177/76 H Pulse Oximetry 98 98 98 Oxygen Delivery Method Room Air Room Air Oxygen Flow Rate 03/28/24 17:00 03/28/24 17:30 03/28/24 17:30 Temperature Pulse Rate 62 Respiratory Rate 17 Blood Pressure 164/72 H 186/78 H Pulse Oximetry 98 Oxygen Delivery Method Room Air Oxygen Flow Rate 03/28/24 17:36 03/28/24 17:36 03/28/24 17:40 Temperature Pulse Rate 64 Respiratory Rate 14 Blood Pressure 167/75 H 175/78 H Pulse Oximetry 98 Oxygen Delivery Method Oxygen Flow Rate 03/28/24 17:40 03/28/24 17:44 03/28/24 17:44 Temperature Pulse Rate 66 61 Respiratory Rate 22 15 Blood Pressure 166/75 H Pulse Oximetry 98 99 Oxygen Delivery Method Room Air Oxygen Flow Rate 03/28/24 17:48 03/28/24 17:48 03/28/24 17:49 Temperature Pulse Rate 61 Respiratory Rate 19 Blood Pressure 115/59 L 113/66 Pulse Oximetry 95 Oxygen Delivery Method Oxygen Flow Rate 03/28/24 17:49 03/28/24 17:52 03/28/24 17:52 Temperature Pulse Rate 78 79 Respiratory Rate 17 28 H Blood Pressure 134/86 Pulse Oximetry 94 97 Oxygen Delivery Method Nasal Cannula Nasal Cannula Oxygen Flow Rate 2 2 03/28/24 17:57 03/28/24 17:57 03/28/24 18:00 Temperature Pulse Rate 76 73 Respiratory Rate 17 25 H Blood Pressure 210/96 H Pulse Oximetry 99 99 Oxygen Delivery Method Nasal Cannula Nasal Cannula Oxygen Flow Rate 2 2 03/28/24 18:00 03/28/24 18:04 03/28/24 18:04 Temperature Pulse Rate 66 Respiratory Rate 20 Blood Pressure 183/84 H 165/73 H Pulse Oximetry 99 Oxygen Delivery Method Room Air Oxygen Flow Rate 03/28/24 18:08 03/28/24 18:08 03/28/24 18:12 Temperature Pulse Rate 58 L 68 Respiratory Rate 16 23 Blood Pressure 148/65 H Pulse Oximetry 98 98 Oxygen Delivery Method Room Air Oxygen Flow Rate 03/28/24 18:12 03/28/24 18:16 03/28/24 18:16 Temperature Pulse Rate 65 Respiratory Rate 14 Blood Pressure 162/77 H 168/82 H Pulse Oximetry 99 Oxygen Delivery Method Oxygen Flow Rate 03/28/24 18:20 03/28/24 18:20 03/28/24 18:24 Temperature Pulse Rate 59 L 64 Respiratory Rate 11 L 17 Blood Pressure 153/72 H Pulse Oximetry 98 95 Oxygen Delivery Method Room Air Oxygen Flow Rate 03/28/24 18:24 03/28/24 18:28 03/28/24 18:28 Temperature Pulse Rate 62 Respiratory Rate 16 Blood Pressure 150/70 H 144/65 H Pulse Oximetry 97 Oxygen Delivery Method Oxygen Flow Rate 03/28/24 18:30 03/28/24 18:32 03/28/24 18:32 Temperature Pulse Rate 62 62 Respiratory Rate 17 12 Blood Pressure 140/66 Pulse Oximetry 97 97 Oxygen Delivery Method Oxygen Flow Rate 03/28/24 18:40 03/28/24 18:40 03/28/24 18:50 Temperature Pulse Rate 60 65 Respiratory Rate 15 18 Blood Pressure 140/65 Pulse Oximetry 98 97 Oxygen Delivery Method Room Air Oxygen Flow Rate 03/28/24 18:50 03/28/24 19:00 03/28/24 19:00 Temperature Pulse Rate 66 Respiratory Rate 17 Blood Pressure 159/70 H 144/59 H Pulse Oximetry 98 Oxygen Delivery Method Room Air Oxygen Flow Rate 03/28/24 19:10 03/28/24 19:10 03/28/24 19:20 Temperature Pulse Rate 65 68 Respiratory Rate 15 19 Blood Pressure 143/65 H Pulse Oximetry 98 97 Oxygen Delivery Method Oxygen Flow Rate 03/28/24 19:20 03/28/24 19:30 03/28/24 19:30 Temperature Pulse Rate 69 Respiratory Rate 25 H Blood Pressure 167/76 H 160/74 H Pulse Oximetry 98 Oxygen Delivery Method Room Air Oxygen Flow Rate 03/28/24 19:39 03/28/24 19:39 03/28/24 19:40 Temperature Pulse Rate 67 64 Respiratory Rate 19 Blood Pressure 152/64 H Pulse Oximetry 97 99 Oxygen Delivery Method Oxygen Flow Rate 03/28/24 19:40 03/28/24 19:44 03/28/24 20:00 Temperature Pulse Rate 54 L Respiratory Rate 20 Blood Pressure 147/67 H 161/72 H Pulse Oximetry Oxygen Delivery Method Oxygen Flow Rate 03/28/24 20:00 03/28/24 20:30 03/28/24 20:30 Temperature Pulse Rate 66 65 Respiratory Rate 17 18 Blood Pressure 144/67 H Pulse Oximetry 99 98 Oxygen Delivery Method Oxygen Flow Rate 03/28/24 20:40 03/28/24 20:40 03/28/24 21:00 Temperature Pulse Rate 59 L 56 L Respiratory Rate 20 14 Blood Pressure 147/69 H Pulse Oximetry 100 97 Oxygen Delivery Method Room Air Oxygen Flow Rate 03/28/24 21:00 03/28/24 21:30 03/28/24 21:30 Temperature Pulse Rate 58 L Respiratory Rate 15 Blood Pressure 120/56 L 115/56 L Pulse Oximetry 96 Oxygen Delivery Method Room Air Oxygen Flow Rate <Mary Perkins, - Last Filed: 03/28/24 22:50> Orders Ordered: ED Orders 03/28/24 16:40 CBC Auto Diff [Complete Blood Count AUTO DIFF] Stat CMP [Comprehensive Metabolic Panel] Stat Prothrombin Time INR Stat Acetaminophen (Acetaminophen 325 Mg Tablet) 650 mg PO Q6H PRN PRN Reason: Fever/Mild Pain (1-3) Acetaminophen (Acetaminophen 325 Mg Tablet) 650 mg PO Q6HR PRN PRN Reason: Fever/Mild Pain (1-3) Hydrocodone Bitart/Acetaminophen (Hydrocodone/Acet 5/325 Tablet) 1 tab PO Q6HR PRN PRN Reason: Pain, Moderate (4-6) Last Admin: 03/28/24 20:42 Dose: 1 tab Documented By: JAVIER Hydromorphone HCl (Hydromorphone 1 Mg Inj) 1 mg IV Q2HR PRN PRN Reason: Pain, Moderate (4-6) Last Admin: 03/28/24 20:43 Dose: 1 mg Documented By: JAVIER Sodium Chloride (Normal Saline 0.9%) 1,000 mls @ 125 mls/hr IV CONT [place] Morphine Sulfate (Morphine 4 Mg/Ml Inj) 4 mg IV Q2HR [place] Ondansetron HCl (Ondansetron 4 Mg/2 Ml Inj) 4 mg IV Q4HR PRN PRN Reason: Nausea And Vomiting Discontinued Medications Apixaban (Apixaban 5 Mg Tablet) 5 mg PO NOW ONE Stop: 03/28/24 20:06 Last Admin: 03/28/24 20:42 Dose: Not Given Documented By: JAVIER Flecainide Acetate (Flecainide 100 Mg Tablet) 75 mg PO NOW ONE Stop: 03/28/24 20:06 Last Admin: 03/28/24 20:51 Dose: 75 mg Documented By: JAVIER Hydromorphone HCl (Hydromorphone 0.5 Mg Inj) 0.5 mg IV NOW ONE Stop: 03/28/24 20:06 Last Admin: 03/28/24 20:52 Dose: Not Given Documented By: JAVIER Acetaminophen (Ofirmev) 1,000 mg in 100 mls @ 400 mls/hr IV NOW ONE Stop: 03/28/24 18:36 Last Infusion: 03/28/24 18:55 Dose: Infused Documented By: Admin: 03/28/24 18:33 Dose: 400 mls/hr Documented By: ETTA Ondansetron HCl (Ondansetron 4 Mg/2 Ml Inj) 4 mg IV NOW ONE Stop: 03/28/24 20:27 Last Admin: 03/28/24 20:43 Dose: 4 mg Documented By: JAVIER Propofol (Propofol 200 Mg/20 Ml Vial) 60 mg 1 mg/kg (60 mg) IV NOW ONE Stop: 03/28/24 17:15 Last Admin: 03/28/24 17:48 Dose: 60 mg Documented By: ETTA Vital Signs Vital signs: Vital Signs - 8 hr 03/28/24 16:38 03/28/24 16:47 03/28/24 17:00 Temperature 97.5 F L Pulse Rate 55 L 54 L 52 L Respiratory Rate 16 18 18 Blood Pressure 177/76 H Pulse Oximetry 98 98 98 Oxygen Delivery Method Room Air Room Air Oxygen Flow Rate 03/28/24 17:00 03/28/24 17:30 03/28/24 17:30 Temperature Pulse Rate 62 Respiratory Rate 17 Blood Pressure 164/72 H 186/78 H Pulse Oximetry 98 Oxygen Delivery Method Room Air Oxygen Flow Rate 03/28/24 17:36 03/28/24 17:36 03/28/24 17:40 Temperature Pulse Rate 64 Respiratory Rate 14 Blood Pressure 167/75 H 175/78 H Pulse Oximetry 98 Oxygen Delivery Method Oxygen Flow Rate 03/28/24 17:40 03/28/24 17:44 03/28/24 17:44 Temperature Pulse Rate 66 61 Respiratory Rate 22 15 Blood Pressure 166/75 H Pulse Oximetry 98 99 Oxygen Delivery Method Room Air Oxygen Flow Rate 03/28/24 17:48 03/28/24 17:48 03/28/24 17:49 Temperature Pulse Rate 61 Respiratory Rate 19 Blood Pressure 115/59 L 113/66 Pulse Oximetry 95 Oxygen Delivery Method Oxygen Flow Rate 03/28/24 17:49 03/28/24 17:52 03/28/24 17:52 Temperature Pulse Rate 78 79 Respiratory Rate 17 28 H Blood Pressure 134/86 Pulse Oximetry 94 97 Oxygen Delivery Method Nasal Cannula Nasal Cannula Oxygen Flow Rate 2 2 03/28/24 17:57 03/28/24 17:57 03/28/24 18:00 Temperature Pulse Rate 76 73 Respiratory Rate 17 25 H Blood Pressure 210/96 H Pulse Oximetry 99 99 Oxygen Delivery Method Nasal Cannula Nasal Cannula Oxygen Flow Rate 2 2 03/28/24 18:00 03/28/24 18:04 03/28/24 18:04 Temperature Pulse Rate 66 Respiratory Rate 20 Blood Pressure 183/84 H 165/73 H Pulse Oximetry 99 Oxygen Delivery Method Room Air Oxygen Flow Rate 03/28/24 18:08 03/28/24 18:08 03/28/24 18:12 Temperature Pulse Rate 58 L 68 Respiratory Rate 16 23 Blood Pressure 148/65 H Pulse Oximetry 98 98 Oxygen Delivery Method Room Air Oxygen Flow Rate 03/28/24 18:12 03/28/24 18:16 03/28/24 18:16 Temperature Pulse Rate 65 Respiratory Rate 14 Blood Pressure 162/77 H 168/82 H Pulse Oximetry 99 Oxygen Delivery Method Oxygen Flow Rate 03/28/24 18:20 03/28/24 18:20 03/28/24 18:24 Temperature Pulse Rate 59 L 64 Respiratory Rate 11 L 17 Blood Pressure 153/72 H Pulse Oximetry 98 95 Oxygen Delivery Method Room Air Oxygen Flow Rate 03/28/24 18:24 03/28/24 18:28 03/28/24 18:28 Temperature Pulse Rate 62 Respiratory Rate 16 Blood Pressure 150/70 H 144/65 H Pulse Oximetry 97 Oxygen Delivery Method Oxygen Flow Rate 03/28/24 18:30 03/28/24 18:32 03/28/24 18:32 Temperature Pulse Rate 62 62 Respiratory Rate 17 12 Blood Pressure 140/66 Pulse Oximetry 97 97 Oxygen Delivery Method Oxygen Flow Rate 03/28/24 18:40 03/28/24 18:40 03/28/24 18:50 Temperature Pulse Rate 60 65 Respiratory Rate 15 18 Blood Pressure 140/65 Pulse Oximetry 98 97 Oxygen Delivery Method Room Air Oxygen Flow Rate 03/28/24 18:50 03/28/24 19:00 03/28/24 19:00 Temperature Pulse Rate 66 Respiratory Rate 17 Blood Pressure 159/70 H 144/59 H Pulse Oximetry 98 Oxygen Delivery Method Room Air Oxygen Flow Rate 03/28/24 19:10 03/28/24 19:10 03/28/24 19:20 Temperature Pulse Rate 65 68 Respiratory Rate 15 19 Blood Pressure 143/65 H Pulse Oximetry 98 97 Oxygen Delivery Method Oxygen Flow Rate 03/28/24 19:20 03/28/24 19:30 03/28/24 19:30 Temperature Pulse Rate 69 Respiratory Rate 25 H Blood Pressure 167/76 H 160/74 H Pulse Oximetry 98 Oxygen Delivery Method Room Air Oxygen Flow Rate 03/28/24 19:39 03/28/24 19:39 03/28/24 19:40 Temperature Pulse Rate 67 64 Respiratory Rate 19 Blood Pressure 152/64 H Pulse Oximetry 97 99 Oxygen Delivery Method Oxygen Flow Rate 03/28/24 19:40 03/28/24 19:44 03/28/24 20:00 Temperature Pulse Rate 54 L Respiratory Rate 20 Blood Pressure 147/67 H 161/72 H Pulse Oximetry Oxygen Delivery Method Oxygen Flow Rate 03/28/24 20:00 03/28/24 20:30 03/28/24 20:30 Temperature Pulse Rate 66 65 Respiratory Rate 17 18 Blood Pressure 144/67 H Pulse Oximetry 99 98 Oxygen Delivery Method Oxygen Flow Rate 03/28/24 20:40 03/28/24 20:40 03/28/24 21:00 Temperature Pulse Rate 59 L 56 L Respiratory Rate 20 14 Blood Pressure 147/69 H Pulse Oximetry 100 97 Oxygen Delivery Method Room Air Oxygen Flow Rate 03/28/24 21:00 03/28/24 21:30 03/28/24 21:30 Temperature Pulse Rate 58 L Respiratory Rate 15 Blood Pressure 120/56 L 115/56 L Pulse Oximetry 96 Oxygen Delivery Method Room Air Oxygen Flow Rate MDM - SOB/Dyspnea <Joyce Roach, DO - Last Filed: 03/28/24 21:31> Lab Data 03/28/24 16:40 03/28/24 16:40 Labs: Lab Results 03/28/24 Range/Units 16:40 WBC 6.5 (4.5-11.0) X10^3/uL RBC 5.17 (4.0-5.2) X10^6/uL Hgb 15.0 (12.0-16.0) g/dL Hct 46.6 H (36-46) % MCV 90.1 (80-100) fL MCH 29.0 (26-34) PG MCHC 32.2 (30-36) % RDW 15.1 H (11.6-14.8) % Plt Count 362 (150-400) X10^3/uL Neut % (Auto) 63.4 (50-75) % Lymph % (Auto) 27.3 (25-40) % [place] % (Auto) 6.9 (3-14) % Eos % (Auto) 1.7 L (2-4) % Baso % (Auto) 0.7 (0-2) % Neut # (Auto) 4100 (3391-2114) /uL Lymph # (Auto) 1800 (4400-0238) /uL [place] # (Auto) 400 (0-900) /uL Eos # (Auto) 100 (0-450) /uL Baso # (Auto) 0 (0-100) /uL PT 13.0 H (9.4-12.5) SECONDS INR 1.1 (0.9-1.3) Sodium 136 L (137-145) mmol/L Potassium 4.1 (3.4-5.1) mmol/L Chloride 102 (98-107) mmol/L Carbon Dioxide 28 (22-32) mmol/L BUN 13 (7-17) mg/dL Creatinine 0.68 (0.52-1.04) mg/dL Estimated GFR > 60 (>60) mL/min BUN/Creatinine Ratio 19.1 (6-22) Glucose 87 (80-110) mg/dL Calcium 9.7 (8.4-10.2) mg/dL Total Bilirubin 0.5 (0.2-1.3) mg/dL AST 50 H (14-36) IU/L ALT 29 (<35) IU/L Alkaline Phosphatase 68 (38-126) U/L Total Protein 7.3 (6.3-8.2) g/dL Albumin 4.1 (3.5-5.0) g/dL Globulin 3.2 (1.7-4.1) g/dL Albumin/Globulin Ratio 1.3 (1.0-2.8) Imaging Data Chest x-ray: Radiologist's Impression: PROCEDURE: XR CHEST 1V INDICATIONS: POST THORACENTESIS TECHNIQUE: One view of the chest was acquired. COMPARISON: [facility], XR CHEST 2V, 03/21/2024, 12:05. FINDINGS: Surgical changes and devices: None. Lungs and pleura: Moderate size right-sided pneumothorax is seen post right thoracentesis. Left lung is clear. Mediastinum: Mediastinal contours appear normal. Heart size is normal. Bones and chest wall: No suspicious bony lesions. Overlying soft tissues appear unremarkable. IMPRESSION: Moderate size right-sided pneumothorax post right thoracentesis. Patient was instructed to go to the ER for chest tube placement. Dictated by: Richard Fulton M.D. on 03/28/2024 at 16:17 CT scan - chest: Radiologist's Impression: PROCEDURE: CT CHEST W CON INDICATIONS: right pleural effusion TECHNIQUE: After the administration of intravenous contrast, 5 mm thick sections acquired from the pulmonary apices to the posterior costophrenic angles. 1 mm axial lung, 5 mm thick coronal and sagittal reformats and 7 mm axial MIP were acquired. For radiation dose reduction, the following was used: automated exposure control, adjustment of mA and/or kV according to patient size. COMPARISON: [facility], XR CHEST 2V, 03/21/2024, 12:05. FINDINGS: Image quality: Diagnostic. Lower Neck: No enlarged lymph nodes. Thyroid: No thyroid nodules which require sonographic follow up, per consensus guidelines. Axillae: No enlarged lymph nodes. Chest Wall: Unremarkable. Bones: Mild heterogeneity of the spinal radiodensity but no definite osteolytic or blastic bone lesions. This appearance may simply reflect degenerative change.. Lungs and Pleura: No pneumothorax. No left-sided pleural effusions. There is a large right pleural effusion that shows exudative characteristics as indicated by mild pleural thickening and enhancement. 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 Additionally, within the medial right lower lobe there is a combination of alveolar consolidation and what appears to be a lobulated mass lesion measuring up to 8.4 x 3.7 cm abutting the right pericardial margins. A pericardial effusion is not associated. Heart: Heart size is normal. No pericardial effusion. Thoracic Vessels: The aorta and pulmonary arteries demonstrate normal size. Mediastinum and Sally: Scattered mildly enlarged abnormally enhancing mediastinal lymph nodes are best seen in the precarinal space and at the superior margin of the right esophagus. Esophagus: No wall thickening. No hiatal hernia. Upper Abdomen: Visualized upper abdomen solid organs and bowel loops appear normal except for mild heterogeneity involving the small portion of the liver included on this study indicating potential for early hepatic metastatic disease. IMPRESSION: Large malignant-appearing pleural effusion on the right, exudative in character, with pleural nodularity and enhancement best seen along the diaphragmatic and right lateral lung base margins. A lung mass likely is present within the medial right lower lobe measuring up to 8.4 x 3.7 cm associated with the effusion abnormality. Malignant-appearing mild adenopathy is seen within the middle mediastinum as discussed, including adjacent to the right margin of the upper esophagus. Suspect early hepatic metastatic disease partially visualized. Mild heterogeneity of the spinal osseous radiodensity, potentially a manifestation of early osseous metastatic disease in this clinical circumstance. Dictated by: Daniele Cuenca M.D. on 03/25/2024 at 14:19 CX 2: Radiologist's Impression: PROCEDURE: XR CHEST 1V INDICATIONS: TUBE PLACEMENT TECHNIQUE: One view of the chest was acquired. COMPARISON: [facility], CR, XR CHEST 1V, 03/28/2024, 16:06. [facility], CR, XR CHEST 2V, 03/21/2024, 12:05. FINDINGS: Surgical changes and devices: Interval right-sided chest tube present. Lungs and pleura: Significant reduction in right-sided pneumothorax. Stable layering right-sided pleural effusion. Mediastinum: Mediastinal contours appear normal. Heart size is normal. Bones and chest wall: No suspicious bony lesions. Subcutaneous gas overlying the right chest wall. IMPRESSION: Interval right-sided chest tube present. Reduction of the right-sided pneumothorax and similar size of the right-sided pleural effusion. Dictated by: Bill Vick M.D. on 03/28/2024 at 18:33 MDM Narrative Medical decision making narrative: Patient is 74-year-old female presents today with iatrogenic pneumothorax after thoracentesis. 24 [place] chest tube placed she had 120mL serosanguineous fluid after but seems to have stopped. Dr. Riggs on-call surgery updated patient's symptoms test results recommends talking to Cardiothoracic surgery about possible VATS procedure and pleurodesis [id number] Dr. Sanders cardiothoracic surgery at [facility] did on present symptoms and test results. He recommends conservative treatment living chest tube in pulling it worse lung is re-expanded. No need for emergent pleurodesis states that he is happy to see patient in clinic Dr. Riggs-request that patient be transferred for Peridex Catheter Discussion with patient and at bedside in regards to request of surgery. She is requesting something more for pain. She was given Tylenol and Dilaudid. Signed out to Dr. Perkins [address] Cortes, states would not transfer at this time would have patient overnight if no air leak would pull a chest tube and have her follow up as an outpatient.? She does not feel that she would place a PleurX catheter at this point she has not had recurrent pleural effusions.?? <Mary Perkins, - Last Filed: 03/28/24 22:50> Lab Data Labs: Lab Results 03/28/24 Range/Units 16:40 WBC 6.5 (4.5-11.0) X10^3/uL RBC 5.17 (4.0-5.2) X10^6/uL Hgb 15.0 (12.0-16.0) g/dL Hct 46.6 H (36-46) % MCV 90.1 (80-100) fL MCH 29.0 (26-34) PG MCHC 32.2 (30-36) % RDW 15.1 H (11.6-14.8) % Plt Count 362 (150-400) X10^3/uL Neut % (Auto) 63.4 (50-75) % Lymph % (Auto) 27.3 (25-40) % [place] % (Auto) 6.9 (3-14) % Eos % (Auto) 1.7 L (2-4) % Baso % (Auto) 0.7 (0-2) % Neut # (Auto) 4100 (0512-6848) /uL Lymph # (Auto) 1800 (5730-0548) /uL [place] # (Auto) 400 (0-900) /uL Eos # (Auto) 100 (0-450) /uL Baso # (Auto) 0 (0-100) /uL PT 13.0 H (9.4-12.5) SECONDS INR 1.1 (0.9-1.3) Sodium 136 L (137-145) mmol/L Potassium 4.1 (3.4-5.1) mmol/L Chloride 102 (98-107) mmol/L Carbon Dioxide 28 (22-32) mmol/L BUN 13 (7-17) mg/dL Creatinine 0.68 (0.52-1.04) mg/dL Estimated GFR > 60 (>60) mL/min BUN/Creatinine Ratio 19.1 (6-22) Glucose 87 (80-110) mg/dL Calcium 9.7 (8.4-10.2) mg/dL Total Bilirubin 0.5 (0.2-1.3) mg/dL AST 50 H (14-36) IU/L ALT 29 (<35) IU/L Alkaline Phosphatase 68 (38-126) U/L Total Protein 7.3 (6.3-8.2) g/dL Albumin 4.1 (3.5-5.0) g/dL Globulin 3.2 (1.7-4.1) g/dL Albumin/Globulin Ratio 1.3 (1.0-2.8) MDM Narrative Medical decision making narrative: Patient is 74-year-old female presents today with iatrogenic pneumothorax after thoracentesis. 24 [place] chest tube placed she had 120mL serosanguineous fluid after but seems to have stopped. Dr. Riggs on-call surgery updated patient's symptoms test results recommends talking to Cardiothoracic surgery about possible VATS procedure and pleurodesis 1847 Dr. Sanders cardiothoracic surgery at [facility] did on present symptoms and test results. He recommends conservative treatment living chest tube in pulling it worse lung is re-expanded. No need for emergent pleurodesis states that he is happy to see patient in clinic Dr. Riggs-request that patient be transferred for Peridex Catheter Dr. Perkins 03/28/2024 patient signed out to myself by Dr. Roach, chest x-ray showed re-expansion patient is tolerating well. General surgery is requested to try to transfer patient for PleurX catheter 1 facility has requested not to transfer. Patient signed out to myself while attempting transfer. [address] Cortes, [facility] surgery states would not transfer at this time would have patient overnight if no air leak would pull a chest tube and have her follow up as an outpatient.? She does not feel that she would place a PleurX catheter at this point she has not had recurrent pleural effusions.?? 2130 Dr. Berkowitz, hospitalist at [facility] states would not have an indication at this time she would recommend monitoring for 24-48 hours if drainage is not seeing or as persisting I can not re-contact for transfer. 2134 Dr. Riggs general surgery hold eliquis for tonight and re-evaluate in the morning. Dr. Castro, accepts for inpatient. Surgery will consult. Discharge Plan Departure Clinical Impression: Iatrogenic pneumothorax, Pleural effusion Admit Date/Time: 03/28/24 21:44 Admit Provider: Raj Castro
[2024-03-28] MEDS: propofoL 200 MG/20 ML VIAL 60 MG IV (17:48)
[2024-03-28] MEDS: ACETAMINOPHEN IV 1,000 MG/100 ML VIAL 400 MG IV (18:33)
--- NOTE | 2024-03-28 19:00 | PC.NURSE ---
Chest tube has drained 120cc of serosanguinous fluid. Pt coughing less and states she can breathe easier.
[2024-03-28 19:13] LABS: Add Manual Diff / Slide Review NO; Basophils Absolute Auto 0 /uL (0-100); Basophils Percent Auto 0.7 % (0-2); Eosinophils Absolute Auto 100 /uL (0-450); Eosinophils Percent Auto 1.7 % (2-4); Hematocrit 46.6 % (36-46); Lymphocytes Absolute Auto 1800 /uL (1100-4500); Lymphocytes Percent Auto 27.3 % (25-40); Mean Corpuscular HGB Conc 32.2 % (30-36); Mean Corpuscular Volume 90.1 fL (80-100); Monocytes Absolute Auto 400 /uL (0-900); Monocytes Percent Auto 6.9 % (3-14); Neutrophils Absolute Auto 4100 /uL (1500-7000); Neutrophils Percent Auto 63.4 % (50-75); Platelet Count 362 X10^3/uL (150-400); Red Blood Cell Count 5.17 X10^6/uL (4.0-5.2); Red Cell Distribution Width 15.1 % (11.6-14.8); White Blood Cell Count 6.5 X10^3/uL (4.5-11.0)
[2024-03-28 19:14] LABS: INR 1.1 (0.9-1.3)
[2024-03-28 19:17] LABS: Alanine Aminotransferase 29 IU/L (<35); Albumin 4.1 g/dL (3.5-5.0); Albumin Globulin Ratio 1.3 (1.0-2.8); Alkaline Phosphatase 68 U/L (38-126); Aspartate Aminotransferase 50 IU/L (14-36); BUN Creatinine Ratio 19.1 (6-22); Bilirubin Total 0.5 mg/dL (0.2-1.3); Blood Urea Nitrogen 13 mg/dL (7-17); Calcium 9.7 mg/dL (8.4-10.2); Carbon Dioxide 28 mmol/L (22-32); Chloride 102 mmol/L (98-107); Estimated Glomerular Filt Rate > 60 mL/min (>60); Globulin 3.2 g/dL (1.7-4.1); Glucose 87 mg/dL (80-110); HEMOLYSIS < 15 (0-50); Potassium 4.1 mmol/L (3.4-5.1); Sodium 136 mmol/L (137-145); Total Protein 7.3 g/dL (6.3-8.2)
--- NOTE | 2024-03-28 19:39 | PC.NURSE ---
Assisted pt to stand at bedside to facilitate changing saturated linens from chest tube procedure. Fresh linens placed on bed and pt changed into new gown.
[2024-03-28] MEDS: HYDROCODONE/ACET 5/325 TABLET 1 TAB PO (20:42)
[2024-03-28] MEDS: HYDROMORPHONE 1 MG INJ IV (20:43)
[2024-03-28] MEDS: ONDANSETRON 4 MG/2 ML INJ IV (20:43)
[2024-03-28] MEDS: FLECAINIDE 100 MG TABLET 75 MG PO (20:51)
[2024-03-28] MEDS: SODIUM CHLORIDE 0.9% 1,000 ML 125 ML IV (22:49)
--- NOTE | 2024-03-29 | DI.CT.S_ITS ---
PROCEDURE: CT ABDOMEN PELVIS WO CON INDICATIONS: AIR IN SUBCUTANEOUS ON CHEST TECHNIQUE: Axial sections were acquired from the lung bases to the pubic symphysis. Coronal and sagittal reformats were performed. For radiation dose reduction, the following was used: automated exposure control, adjustment of mA and/or kV according to patient size. COMPARISON: None. FINDINGS: Image quality: Diagnostic Lower chest: Separately dictated Normal heart size. Liver: No contour deforming mass. Heterogeneous appearance of the liver with many small lesions particularly seen at the dome, not well characterized on this study. Cysts are also likely present. Gallbladder and biliary system: Unremarkable but not well assessed on this study Pancreas: No definite ductal dilation Spleen: Nonenlarged Adrenals: No discrete nodules Kidneys: No solid mass. No hydronephrosis. Vessels and lymph nodes: No abdominal aortic aneurysm. No pathologic lymph nodes by size criteria. Bowel and peritoneum: No evidence of small bowel obstruction. No pathologic ascites. Body wall: Subcutaneous emphysema from the chest extends to the right abdominal wall. Rectus diastasis without obstructed bowel. Pelvis: Partially obscured by metallic artifact. Bladder is unremarkable. Reproductive organs not well assessed on this study. Bones: Right hip arthroplasty with surrounding metallic artifact. There are small sclerotic bone lesions throughout the pelvis and spine. Degenerative changes also present. IMPRESSION: Subcutaneous emphysema extends to the abdominal wall from the chest. Pneumomediastinum was seen on CT chest along with a right pneumothorax and chest tube within the minor fissure. Indeterminate small liver and bone lesions, suspicious in the setting of probable lung malignancy. A PET-CT could be helpful. Other findings above. Limited noncontrast CT. Dictated by: Juvenal Zaidi M.D. on 03/29/2024 at 14:53 Approved by: Juvenal Zaidi M.D. on 03/29/2024 at 14:57
[2024-03-29 03:00] VITALS: BP 118/63; PULSE 55; RESP 18; TEMP 36.2; O2SAT 99
[2024-03-29] MEDS: ACETAMINOPHEN 325 MG TABLET 650 MG PO ×2 (06:23→18:05)
--- NOTE | 2024-03-29 07:45 | PC.NURSE ---
Admit/NOC Shift Note- Patient arrived to room via stretcher from ER. Patient alert and oriented and able to make needs known to staff. Admit questions done, medications reviewed, physical assessment done, and skin check completed. Patient oriented to bed and bed controls, room, bathroom, lights, phone, menu, and call marshall/TV Remote. Patient agrees to call for assisstance. Call marshall and phone within reach. stay night in room.
[2024-03-29 08:00] VITALS: BP 146/47; PULSE 62; RESP 17; TEMP 36.1; O2SAT 100
--- NOTE | 2024-03-29 08:43 | P.HP_ITS ---
History of Present Illness History of Present Illness Date Patient Seen: 03/29/24 Time Patient Seen: 08:00 Chief complaint: sent by MATTHIEU for collapsed lung Narrative: Pt is a 74yo woman with paroxysmal atrial fibrillation and hx of breast cancer who presented with pneumothorax after thoracentesis completed due to moderate pleural effusion and lung mass. The pt was asymptomatic other than a mild cough after the procedure and not hypoxic, however CXR showed large pneumothorax. The pt then went to the ED for treatment with chest tube placement. This morning, the pt reports some pain around the chest tube site. She denies any shortness of breath, but does continue to have a frequent dry cough. She has some mild chest pain anteriorly that she feels is muscular, and worse with deep breath. [facility] Medical History Easy bruisability Osteoarthritis Hx of supraventricular tachycardia (10/2016) Sinus bradycardia Breast cancer (2009) DVT (deep venous thrombosis) (2012) PSVT (paroxysmal supraventricular tachycardia) (2014) Cardiac arrhythmia (2014) Atrial fibrillation (2016) Hyperlipidemia (2004) GERD (gastroesophageal reflux disease) (2001) Anesthesia Surgical History History of colonoscopy (2008) Normal colonoscopy (2008) History of total mastectomy (2009) Status post colposcopy (2008) Family History Father No problems noted. Mother No problems noted. Social History marital status: number of children: 2 household members: spouse lives independently: Yes caregiver/support person: No housing: house Smoking Status: Former smoker second hand exposure: No alcohol intake: current substance use type: does not use Meds Home Medications and Allergies Home Medications Medication Instructions Recorded Confirmed Type cholecalciferol (vitamin D3) 125 125 mcg PO DAILY ##0 12/09/12 03/28/24 History mcg (5,000 unit) tablet (Vitamin D3) apixaban 5 mg tablet (Eliquis) 5 mg PO BID #60 tabs 09/09/17 03/28/24 Rx wbolxje-jfeqnvkqbcfis-osolksaj 250 2 tab PO PRN PRN Pain 12/09/23 03/28/24 History mg-250 mg-65 mg tablet (Excedrin Extra Strength) flecainide 150 mg tablet 75 mg PO Q12H 12/09/23 03/28/24 History metoprolol succinate 25 mg 12.5 mg PO DAILY 12/09/23 03/28/24 History tablet,extended release 24 hr (Toprol XL) atorvastatin 10 mg tablet 10 mg PO DAILY 02/16/24 03/28/24 History clotrimazole 1 % topical cream 1 applic topical BID #45 grams 02/16/24 03/28/24 Rx magnesium oxide 400 mg (241.3 mg 400 mg PO BID 02/16/24 03/28/24 History magnesium) tablet nystatin 100,000 unit/gram topical 1 applic topical DAILY #60 grams 02/16/24 03/28/24 Rx powder omeprazole 40 mg capsule,delayed 20 mg PO BID 03/28/24 03/28/24 History release Allergies Allergy/AdvReac Type Severity Reaction Status Date / Time No Known Drug Allergies Allergy Verified 03/28/24 16:39 Exam Vital Signs (past 8 hours): - 03/29/24 03:00 Temperature 97.2 F L Pulse Rate 55 L Respiratory Rate 18 Blood Pressure 118/63 Pulse Oximetry 99 Oxygen Flow Rate 0 Oxygen Delivery Method Room Air Oxygen Flow Rate 0 Narrative Exam Narrative: Gen: NAD, sitting comfortably in bed, appears well Neck: no LAD CV: RRR, no murmurs Resp: no wheezing, decreased breath sounds right base, no crackles, chest tube in place draining serosanguinous fluid Abd: soft, nontender, nondistended Ext: no edema Neuro: no gross deficits Objective Labs 03/28/24 16:40 03/28/24 16:40 Labs: Laboratory Results - last 24 hr 03/28/24 16:40 WBC 6.5 RBC 5.17 Hgb 15.0 Hct 46.6 H MCV 90.1 MCH 29.0 MCHC 32.2 RDW 15.1 H Plt Count 362 Neut % (Auto) 63.4 Lymph % (Auto) 27.3 [place] % (Auto) 6.9 Eos % (Auto) 1.7 L Baso % (Auto) 0.7 Neut # (Auto) 4100 Lymph # (Auto) 1800 [place] # (Auto) 400 Eos # (Auto) 100 Baso # (Auto) 0 PT 13.0 H INR 1.1 Sodium 136 L Potassium 4.1 Chloride 102 Carbon Dioxide 28 BUN 13 Creatinine 0.68 Estimated GFR > 60 BUN/Creatinine Ratio 19.1 Glucose 87 Calcium 9.7 Total Bilirubin 0.5 AST 50 H ALT 29 Alkaline Phosphatase 68 Total Protein 7.3 Albumin 4.1 Globulin 3.2 Albumin/Globulin Ratio 1.3 Assessment & Plan Assessment & Plan narrative: Pt is a 74yo woman with paroxysmal atrial fibrillation and hx of breast cancer who presented with pneumothorax after thoracentesis completed due to moderate pleural effusion and lung mass. 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 - Will f/u cytology once available - Pt aware of high likelihood of cancer 3) Paroxysmal atrial fibrillation: Sinus rhythm currently, rate controlled - Continue home Metoprolol, Flecainide - Hold home Eliquis for now 4) GERD: Stable - Continue home Omeprazole FEN: General diet Code: Full DVT ppx: SCDs Time-Based Coding :: [TOTAL MINUTES] spent with patient and on the chart (including review of chart, obtaining history, exam, reviewing outside data, placing orders, documenting exam and treatment plan, and counseling patient) on [DATE]. Quality VTE Deep Vein Thrombosis/Pulmonary Embolism Present on Admission: No
[2024-03-29 09:42] VITALS: BP 146/47
[2024-03-29] MEDS: PANTOPRAZOLE DR 20 MG TABLET PO ×2 (09:42→20:22)
[2024-03-29] MEDS: METOPROLOL ER 25 MG TABLET 12.5 MG PO (09:42)
[2024-03-29] MEDS: MAGNESIUM OXIDE 400 MG TABLET PO ×2 (09:42→20:22)
[2024-03-29] MEDS: CHOLECALCIFEROL (VITAMIN D3) 5,000 UNIT TABLET 5000 UNIT PO (09:42)
[2024-03-29] MEDS: ATORVASTATIN 20 MG TABLET 10 MG PO (09:43)
[2024-03-29] MEDS: FLECAINIDE 100 MG TABLET 75 MG PO ×2 (09:43→20:22)
[2024-03-29] MEDS: HYDROCODONE/ACET 5/325 TABLET 1 TAB PO (09:44)
[2024-03-29] MEDS: ONDANSETRON 4 MG/2 ML INJ IV (09:47)
--- NOTE | 2024-03-29 10:49 | DI.RAD.S_ITS ---
PROCEDURE: XR CHEST 2V INDICATIONS: pneumothorax, chest tube position, pleural effusion TECHNIQUE: 2 views of the chest were acquired. COMPARISON: [facility], , XR CHEST 1V, 03/28/2024, 17:54. FINDINGS: Surgical changes and devices: Right-sided chest tube tip is projecting at right hilar region. Lungs and pleura: Persistent small to moderate right pleural effusion. Right-sided pneumothorax is again seen not significantly changed in size compared to previous day. Mediastinum: Mediastinal contours are normal. Heart size is normal. Bones and chest wall: No suspicious bony abnormalities. Subcutaneous emphysema along right lateral chest wall is seen. IMPRESSION: Stable appearance of right pneumothorax and layering right pleural effusion. Left lung remains clear. Dictated by: Richard Fulton M.D. on 03/29/2024 at 11:45 Approved by: Richard Fulton M.D. on 03/29/2024 at 11:47
[2024-03-29 12:00] VITALS: BP 133/65; PULSE 63; RESP 18; TEMP 36.2; O2SAT 99
--- NOTE | 2024-03-29 12:00 | PM.CN ---
History of Present Illness Consult details Date Patient Seen: 03/29/24 Time Patient Seen: 12:00 Chief complaint: sent by DI for collapsed lung Reason for consult: Pleural effusion with pneumothorax following thoracentesis Requesting provider: Joyce Roach Narrative: this is a 74-year old white female with progressive cough and dyspnea. CT scan revealed a lung mass and pleural effusion. Her primary care doctor ordered a thoracentesis. 1500 mL of straw fluid were removed, but the patient developed a moderate-sized pneumothorax after the radiologist procedure. The radiologist directed the patient to the ER. A chest tube was placed in the ER last night and has already put out over 450 mL by this morning. She still has an air leak. Repeat chest x-ray show still shows some Subcutaneous emphysema tracking along the chest wall. Meds Home Medications and Allergies Home Medications Medication Instructions Recorded Confirmed Type cholecalciferol (vitamin D3) 125 125 mcg PO DAILY ##0 12/09/12 03/28/24 History mcg (5,000 unit) tablet (Vitamin D3) apixaban 5 mg tablet (Eliquis) 5 mg PO BID #60 tabs 09/09/17 03/28/24 Rx qegdjog-ktuylvebkszmv-potvfelq 250 2 tab PO PRN PRN Pain 12/09/23 03/28/24 History mg-250 mg-65 mg tablet (Excedrin Extra Strength) flecainide 150 mg tablet 75 mg PO Q12H 12/09/23 03/28/24 History metoprolol succinate 25 mg 12.5 mg PO DAILY 12/09/23 03/28/24 History tablet,extended release 24 hr (Toprol XL) atorvastatin 10 mg tablet 10 mg PO DAILY 02/16/24 03/28/24 History clotrimazole 1 % topical cream 1 applic topical BID #45 grams 02/16/24 03/28/24 Rx magnesium oxide 400 mg (241.3 mg 400 mg PO BID 02/16/24 03/28/24 History magnesium) tablet nystatin 100,000 unit/gram topical 1 applic topical DAILY #60 grams 02/16/24 03/28/24 Rx powder omeprazole 40 mg capsule,delayed 20 mg PO BID 03/28/24 03/28/24 History release Allergies Allergy/AdvReac Type Severity Reaction Status Date / Time No Known Drug Allergies Allergy Verified 03/28/24 16:39 Review of Systems Review of Systems ROS: Yes All systems reviewed with the patient and are negative except as otherwise documented Constitutional Constitutional: Reports anorexia, Denies fever(s), Denies headache(s) and Reports malaise Eyes Eyes: Reports system reviewed and no additional complaints, except as documented ENT Ears, Nose, Mouth, and Throat: Yes system reviewed and no additional complaints, except as documented and No headache(s) Cardiovascular Cardiovascular: Reports system reviewed and no additional complaints, except as documented and Reports dyspnea on exertion Respiratory Respiratory: Reports cough, Reports pain on inspiration and Reports dyspnea on exertion Gastrointestinal Gastrointestinal: Reports system reviewed and no additional complaints, except as documented Genitourinary Genitourinary: Reports system reviewed and no additional complaints, except as documented Musculoskeletal Musculoskeletal: Reports system reviewed and no additional complaints, except as documented Integumentary/Breasts Skin/Breast: Reports system reviewed and no additional complaints, except as documented Neurologic Neurologic: Reports system reviewed and no additional complaints, except as documented and Denies headache(s) Psychiatric Psychiatric: Reports system reviewed and no additional complaints, except as documented Endocrine Endocrine: Reports system reviewed and no additional complaints, except as documented Hematologic/Lymphatic Hematologic/Lymphatic: Reports system reviewed and no additional complaints, except as documented Allergic/Immunologic Allergic/Immunologic: Reports system reviewed and no additional complaints, except as documented Exam Vital Signs (past 8 hours): - 03/29/24 08:00 03/29/24 09:42 Temperature 97.0 F L Pulse Rate 62 Respiratory Rate 17 Blood Pressure 146/47 H 146/47 H Pulse Oximetry 100 Oxygen Flow Rate 0 Oxygen Delivery Method Room Air Oxygen Flow Rate 0 Narrative Exam Narrative: Gen: NAD, sitting comfortably in bed, appears well HEENT: Sclera are anicteric, head is normocephalic and atraumatic, trachea is midline. CV: RRR, no JVD Resp: clear to auscultation bilaterally, equal chest wall movement bilaterally. chest tube canister shows over 450 mL of serosanguineous fluid. Removed from suctioned and demonstrates an air leak. Placed back to suction due to crepitus. Abd: soft, nontender, normoactive bowel sounds Ext: no edema, full range of motion Neuro: Cranial nerves II-XII grossly intact, no focal deficits Skin: No erythema or ecchymosis Const General: cooperative, anxious and frail appearing [facility] Head: normocephalic and atraumatic Eyes General: appearance normal, both eyes and all related structures Periorbital: periorbital findings normal Sclera: sclerae normal Neck Neck: full ROM and trachea midline Chest Chest: crepitus Resp Effort & Inspection: normal respiratory effort and able to speak in complete sentences Cardio Rate: regular rate GI Inspection: normal to inspection Palpation: soft Objective Imaging Chest x-ray: My impression: Chest tube is in good position for draining and effusion, she has significant subcutaneous emphysema tracking along the right chest wall and up toward above the axilla. Labs 03/28/24 16:40 03/28/24 16:40 Labs: Laboratory Results - last 24 hr 03/28/24 16:40 WBC 6.5 RBC 5.17 Hgb 15.0 Hct 46.6 H MCV 90.1 MCH 29.0 MCHC 32.2 RDW 15.1 H Plt Count 362 Neut % (Auto) 63.4 Lymph % (Auto) 27.3 [place] % (Auto) 6.9 Eos % (Auto) 1.7 L Baso % (Auto) 0.7 Neut # (Auto) 4100 Lymph # (Auto) 1800 [place] # (Auto) 400 Eos # (Auto) 100 Baso # (Auto) 0 PT 13.0 H INR 1.1 Sodium 136 L Potassium 4.1 Chloride 102 Carbon Dioxide 28 BUN 13 Creatinine 0.68 Estimated GFR > 60 BUN/Creatinine Ratio 19.1 Glucose 87 Calcium 9.7 Total Bilirubin 0.5 AST 50 H ALT 29 Alkaline Phosphatase 68 Total Protein 7.3 Albumin 4.1 Globulin 3.2 Albumin/Globulin Ratio 1.3 PFSH Medical History Easy bruisability Osteoarthritis Hx of supraventricular tachycardia (10/2016) Sinus bradycardia Breast cancer (2009) DVT (deep venous thrombosis) (2012) PSVT (paroxysmal supraventricular tachycardia) (2014) Cardiac arrhythmia (2014) Atrial fibrillation (2016) Hyperlipidemia (2004) GERD (gastroesophageal reflux disease) (2001) Anesthesia Surgical History History of colonoscopy (2008) Normal colonoscopy (2008) History of total mastectomy (2009) Status post colposcopy (2008) Family History Father No problems noted. Mother No problems noted. Social History marital status: number of children: 2 household members: spouse lives independently: Yes caregiver/support person: No housing: house Tobacco & Substance Use Smoking Status: Former smoker second hand exposure: No alcohol intake: current substance use type: does not use Assessment & Plan Assessment and plan (1) Pleural effusion: Status: Acute (2) Iatrogenic pneumothorax: Status: Acute Assessment & Plan narrative: Presumed to be malignant effusion, cytology and LDH have not yet returned. The lung mass, Adenopathy or the presumed liver metastasis have not been directly biopsied. discussed with the ER physician last night to try to get opinions and direction from tertiary care center. No one would accept the patient in transfer. Patient was admitted to her primary care doctor here. I placed a phone call to Dr. Royal of pulmonology for further recommendations, he does not suggest placing a PleurX catheter unless we have a confirmed diagnosis and several days to a couple weeks of demonstrated reaccumulation of fluid. Discussed with Dr. Horne, the hospitalist, to see if he knew of any resources at outside hospitals that could help to assume care of this case. In the meantime, we will monitor for improvement in the subcutaneous emphysema before we take the chest tube off suction. Would ideally like the drainage output to be less than 100-200 mL per day before removing the chest tube. Presently it has been 450 mL in the last 12 hours so we would not consider removing the chest tube in the next 24 hour period. Plan to re-evaluate tomorrow morning. If drainage decreases to goal, is the earliest I could see the tube being removed, or she may need to be discharge with the tube when it can safely be removed from suction. Time-Based Coding :: [TOTAL MINUTES] spent with patient and on the chart (including review of chart, obtaining history, exam, reviewing outside data, placing orders, documenting exam and treatment plan, and counseling patient) on [DATE]. PROFEE Charge Codes Inpatient or Observation consultation: [id number]
--- NOTE | 2024-03-29 12:42 | CM.DANOTE ---
Initial DCP Assessment Visit Note Reviewed EMR and team rounds for status updates. Met with pt's spouse to introduce self and role, but was in x-ray at the time of this visit. Pt lives independently w/spouse in their own home in [place]. She is currently being transferred to a higher level of care for chest-tube needs and cardiothoracic intervention-pending bed availability. No CM d/c needs are identified at this time. Payor: Medicare PCP: Dr. Castro Pt is a 74 year-old F who had a thoracentesis today in [facility] for a pleural effusion, was sent by [facility] to the ED due to a iatrogenic pneumothorax. On 03/25, she had a CT scan that showed the pleural effusion as well as a large new lung mass, which was concerning for malignancy. A chest tube was placed in the ED, and she was admitted for further monitoring and pain control. Due to the chest tube not being able to be removed, she is being sent out for further tx. Discharge Planning/Care Management CM Discharge Assessment Start: 03/29/24 12:38 Freq: Status: Active Protocol: Document 03/29/24 12:39 DPL (Rec: 03/29/24 12:42 DPL [id number]) Discharge Planning Assessment Assigned Tilt Wall Supervisor MARIANNE Dooley Advance Directives? No History Provided By Family Member,Medical Record Has Patient been admitted in last 30 No days? Prior Living Arrangements House Household Members spouse Type of transporation used prior to Drives own vehicle admit Independent with ADL's Yes Is patient alert and oriented? Yes Caregiver for Another No Comment N/A Comment Pt is being transferred to a higher level of care pending bed availability. Barriers to Discharge No Discharge Plan Transfer to Higher Level of Care Referrals Initiated None needed Whiteboard Updated in Patient Room with Yes name and ext. # of Tilt Wall Supervisor Review Status In Process Please Provide Date Initial DC 03/29/24 Assessment Was Performed
--- NOTE | 2024-03-29 12:56 | DI.CT.S_ITS ---
PROCEDURE: CT CHEST WO CON INDICATIONS: chest tube TECHNIQUE: Noncontrast 5 mm thick sections acquired from the pulmonary apices to the posterior costophrenic angles. 1 mm lung window, 5 mm thick coronal and sagittal and 7 mm axial MIP reformats were then acquired. For radiation dose reduction, the following was used: automated exposure control, adjustment of mA and/or kV according to patient size. COMPARISON: [facility], CT, CT CHEST W CON, 03/25/2024, 12:26. FINDINGS: Image quality: Diagnostic Lungs and pleura: The right chest tube is within the major fissure. Nzpn-po-wafpjyze pneumothorax at the apex and at the base. Decreased loculated pleural effusion. Possible lung masses/nodules measuring 2.3 cm in the right lower lobe and 2.6 cm in the middle lobe. There are surrounding opacities which may be infectious/inflammatory versus additional atelectasis. The entire extent of the opacity in the right lower lobe is 7 cm (4/229). Numerous small pulmonary nodules are also seen elsewhere, including left lung. Mediastinum, heart, and esophagus: Pneumomediastinum. Coronary calcifications. Mildly enlarged lymph nodes are present, for example precarinal node measures 1 cm in short axis. Chest wall and thyroid: Subcutaneous emphysema along the right chest wall. There are breast implants. Upper abdomen: Separately dictated Bones: Degenerative changes. Subtle partially sclerotic lesions are seen within the vertebral bodies, for example at T3. IMPRESSION: The right chest tube at the right lung base is located within the minor fissure. Fbne-km-llyyjjif pneumothorax. Decreased pleural effusion. At least 2 lung suspicious nodules are present, surrounded by opacities that may represent additional areas of malignancy versus atelectasis or airspace consolidation. Suspicious mildly sclerotic vertebral body lesions. Borderline enlarged mediastinal lymph nodes. A PET-CT could be helpful. Dictated by: Juvenal Zaidi M.D. on 03/29/2024 at 14:46 Approved by: Juvenal Zaidi M.D. on 03/29/2024 at 14:52
--- NOTE | 2024-03-29 13:05 | PM.CN ---
History of Present Illness Consult details Chief complaint: sent by MATTHIEU for collapsed lung Reason for consult: Pleural effusion, pneumothorax status post chest tube Narrative: 74-year-old with past medical history of atrial fibrillation, breast cancer who was admitted to [facility] after complication from diagnostic/therapeutic thoracentesis in the setting of a large right-sided pleural effusion. Patient initially seen by her primary care provider with symptoms of cough, this led to chest imaging being obtained showing a large right-sided pleural effusion. After which a CT scan of the chest was obtained showing malignant appearing pleural effusion on the right with pleural nodularity and potential lung mass within the medial right lower lobe measuring 8.4 x 3.7 cm. Given this finding she presented to [place] for a diagnostic/therapeutic thoracentesis on 03/28. Thoracentesis completed with 1500 cc of clear yellowish fluid removed and sent for diagnostics. Unfortunately postprocedural x-ray notable for moderate size right-sided pneumothorax. Patient instructed to go to the emergency department where a [address] in the right axilla. Overnight patient had roughly 500 cc of bloody drainage with report of persistent air leak so pulmonology was consulted for further recommendations. Of note post chest tube x-ray and x-ray this morning notable for persistent qfwvm-ep-nbexnqep right pleural effusion and small right-sided pneumothorax (significantly improved from prior). On my evaluation patient notes discomfort from the chest tube however no other acute issues. Chest tube Pleur-evac has roughly 500 cc of bloody drainage. Upon clamping evidence of intermittent 1 chamber air leak that ceased after prolonged clamp. Meds Home Medications and Allergies Home Medications Medication Instructions Recorded Confirmed Type cholecalciferol (vitamin D3) 125 125 mcg PO DAILY ##0 12/09/12 03/28/24 History mcg (5,000 unit) tablet (Vitamin D3) apixaban 5 mg tablet (Eliquis) 5 mg PO BID #60 tabs 09/09/17 03/28/24 Rx atupixr-xyvjsnizbsvab-yhvladmi 250 2 tab PO PRN PRN Pain 12/09/23 03/28/24 History mg-250 mg-65 mg tablet (Excedrin Extra Strength) flecainide 150 mg tablet 75 mg PO Q12H 12/09/23 03/28/24 History metoprolol succinate 25 mg 12.5 mg PO DAILY 12/09/23 03/28/24 History tablet,extended release 24 hr (Toprol XL) atorvastatin 10 mg tablet 10 mg PO DAILY 02/16/24 03/28/24 History clotrimazole 1 % topical cream 1 applic topical BID #45 grams 02/16/24 03/28/24 Rx magnesium oxide 400 mg (241.3 mg 400 mg PO BID 02/16/24 03/28/24 History magnesium) tablet nystatin 100,000 unit/gram topical 1 applic topical DAILY #60 grams 02/16/24 03/28/24 Rx powder omeprazole 40 mg capsule,delayed 20 mg PO BID 03/28/24 03/28/24 History release Allergies Allergy/AdvReac Type Severity Reaction Status Date / Time No Known Drug Allergies Allergy Verified 03/28/24 16:39 Review of Systems Review of Systems ROS: Yes All systems reviewed with the patient and are negative except as otherwise documented Exam Vital Signs (past 8 hours): - 03/29/24 08:00 03/29/24 09:42 03/29/24 12:00 Temperature 97.0 F L 97.2 F L Pulse Rate 62 63 Respiratory Rate 17 18 Blood Pressure 146/47 H 146/47 H 133/65 Pulse Oximetry 100 99 Oxygen Flow Rate 0 0 Oxygen Delivery Method Room Air Oxygen Flow Rate 0 Narrative Exam Narrative: GEN: No acute distress. Generally well-appearing. HEENT: Extraocular muscles grossly intact. CV: Regular rate and rhythm. No murmurs gallops or rubs. Resp: Clear to auscultation bilaterally. No wheezes rales or rhonchi. Nonlabored. Right axillary [address] in place connected to suction. Ext: No peripheral edema. No deformities. Neuro: Cranial nerves grossly intact. No focal deficits. Objective Imaging CT scan - chest: My impression: I personally reviewed CT of the chest dated 03/25/2024 showing large right-sided pleural effusion with possible right-sided lung mass associated and compressive atelectasis. Also reviewed CT of the chest dated 03/29 showing interval placement of chest tube, chest tube appears to be lying in the Carl of right middle lobe/right lower lobe however on some views I am uncertain if this is actually within the lung parenchyma. There is no surrounding tract hematoma or consolidation making me more sure that this is rather in the fissure that in the lung parenchyma Chest x-ray: My impression: I personally reviewed x-ray of the chest dated 03/28 and 03/29 initially showing moderate size pneumothorax subsequent imaging showing placement of chest tube that migrated near to the right hilar area with significant reduction in volume of pneumothorax however persistent at the right base with some effusion present. Labs 03/28/24 16:40 03/28/24 16:40 Labs: Laboratory Results - last 24 hr 03/28/24 16:40 WBC 6.5 RBC 5.17 Hgb 15.0 Hct 46.6 H MCV 90.1 MCH 29.0 MCHC 32.2 RDW 15.1 H Plt Count 362 Neut % (Auto) 63.4 Lymph % (Auto) 27.3 [place] % (Auto) 6.9 Eos % (Auto) 1.7 L Baso % (Auto) 0.7 Neut # (Auto) 4100 Lymph # (Auto) 1800 [place] # (Auto) 400 Eos # (Auto) 100 Baso # (Auto) 0 PT 13.0 H INR 1.1 Sodium 136 L Potassium 4.1 Chloride 102 Carbon Dioxide 28 BUN 13 Creatinine 0.68 Estimated GFR > 60 BUN/Creatinine Ratio 19.1 Glucose 87 Calcium 9.7 Total Bilirubin 0.5 AST 50 H ALT 29 Alkaline Phosphatase 68 Total Protein 7.3 Albumin 4.1 Globulin 3.2 Albumin/Globulin Ratio 1.3 PFSH Medical History Easy bruisability Osteoarthritis Hx of supraventricular tachycardia (10/2016) Sinus bradycardia Breast cancer (2009) DVT (deep venous thrombosis) (2012) PSVT (paroxysmal supraventricular tachycardia) (2014) Cardiac arrhythmia (2014) Atrial fibrillation (2016) Hyperlipidemia (2004) GERD (gastroesophageal reflux disease) (2001) Anesthesia Surgical History History of colonoscopy (2008) Normal colonoscopy (2008) History of total mastectomy (2009) Status post colposcopy (2008) Family History Father No problems noted. Mother No problems noted. Social History marital status: number of children: 2 household members: spouse lives independently: Yes caregiver/support person: No housing: house Tobacco & Substance Use Smoking Status: Former smoker second hand exposure: No alcohol intake: current substance use type: does not use Assessment & Plan Assessment and plan (1) Pleural effusion: Status: Acute (2) Iatrogenic pneumothorax: Status: Acute Plan 74-year-old admitted for postprocedural pneumothorax after diagnostic/therapeutic thoracentesis. Currently has a [address] Repeat [address] of the chest showing interval placement of the chest tube with persistent mild/moderate pneumothorax and some residual effusion. Her chest tube continues to have intermittent air leak with continued drainage. I believe that the chest tube is lying deep within the fissure with both side and distal ports occluded therefore unable to adequately decompress the pneumothorax however on some of the views I am not 100% confident that the chest tube is not within the lung parenchyma. In the axial and sagittal views tube appears to be riding through the fissure however in the coronal view there may be some parenchymal distortion. Regardless I would recommend transfer of patient to a facility with thoracic surgery available to assist with further management. Ultimately I think this will be resolved with just pulling the chest tube back a few cm to allow adequate decompression however I think it is important to have thoracic surgery as a backup case there is any complications such as hematoma or hemorrhage development. In regards to drainage of the chest tube, if this is truly a malignant effusion and this will continues to recur. Ultimately she will need the chest tube out and determine the rate of reaccumulation to see if she needs repeated thoracentesis versus indwelling catheter. Time-Based Coding :: I spent a total of 52 minutes on date of service performing comprehensive chart review including documentation from primary provider and consultants, review of relevant diagnostic testing and independent review of thoracic imaging, obtaining clinical history from patient and performing a medically appropriate evaluation, ordering relevant diagnostic tests and medications, counseling and educating the patient, and documenting clinical information in the electronic health record. Managed conditions today include pneumothorax, pleural effusion, complication of chest tube IH PROFEE Charge Codes Inpatient or Observation consultation: [id number]
[2024-03-29] MEDS: OXYCODONE IR 5 MG TABLET PO ×2 (13:42→18:04)
--- NOTE | 2024-03-29 15:38 | PM.DS.1 ---
History of Present Illness History of Present Illness Date Patient Seen: 03/29/24 Chief complaint: sent by DI for collapsed lung Narrative: Pt is a 74yo woman with paroxysmal atrial fibrillation and hx of breast cancer who presented with pneumothorax after thoracentesis completed due to moderate pleural effusion and lung mass. The pt was asymptomatic other than a mild cough after the procedure and not hypoxic, however CXR showed large pneumothorax. The pt then went to the ED for treatment with chest tube placement. This morning, the pt reports some pain around the chest tube site. She denies any shortness of breath, but does continue to have a frequent dry cough. She has some mild chest pain anteriorly that she feels is muscular, and worse with deep breath. Discharge Providers Provider Date of admission: 03/28/24 21:44 Discharge Date: 03/29/24 Primary care physician: Lisa Stephen MD Consults: 03/28/24 21:45 Consult to General Surgery Stat Comment: Consulting Provider: Rigo Riggs Reason for consultation: pneumothorax Has provider been notified: Yes 03/29/24 11:01 Consult to Hospitalist Service Routine Comment: Consulting Provider: Uday Horne Reason for consultation: pleural effusion, pneumothorax, potential transfer for tertiary care Has provider been notified: Yes 03/29/24 12:50 Consult to Pulmonology Routine Comment: Consulting Provider: Celio Steele Reason for consultation: Chest tube Has provider been notified: Yes Discharge provider: Lisa Stephen MD Summary Hospital Course Discharge Diagnosis: Iatrogenic pneumothorax Pleural effusion Likely metastatic lung cancer Pneumomediastinum Paroxysmal atrial fibrillation GERD Hospital Course: The pt presented with pneumothorax after diagnostic and therapeutic thoracentesis. She had a chest tube placed in the ED. Attempts were made for transfer at that point in time, however it was determined appropriate to monitor her overnight with potential removal of chest tube the next day. Overnight, the chest tube continued to drain a significant amount of fluid. In approximately 12hrs the pt had drained more than 450cc of serosanguinous fluid. She continued to have an intermittent air leak with clamping. Repeat imaging showed persistent pleural effusion and ongoing pneumothorax. Pulmonology was consulted, and CT chest, abdomen, and pelvis were completed. CT chest showed the chest tube was present in a fissure, with Pulmonology being concerned about the occlusion of side and distal ports. The remainder of the imaging again showed evidence of likely metastatic lesions, with recommendation for PET. Due to concerns for complications with repositioning of the chest tube without cardiothoracic surgery present, the decision was made to transfer the pt to [facility] for ongoing care. The pt remained hemodynamically stable with normal O2 saturation throughout her hospitalization. Status at Discharge Cognitive/behavioral status at discharge: oriented Functional status at discharge: independent ambulation Exam Vital Signs (past 8 hours): - 03/29/24 08:00 03/29/24 09:42 03/29/24 12:00 Temperature 97.0 F L 97.2 F L Pulse Rate 62 63 Respiratory Rate 17 18 Blood Pressure 146/47 H 146/47 H 133/65 Pulse Oximetry 100 99 Oxygen Flow Rate 0 0 Oxygen Delivery Method Room Air Oxygen Flow Rate 0 Narrative Exam Narrative: Gen: NAD, sitting comfortably in bed, appears well Neck: no LAD CV: RRR, no murmurs Resp: no wheezing, decreased breath sounds right base, no crackles, chest tube in place draining serosanguinous fluid Abd: soft, nontender, nondistended Ext: no edema Neuro: no gross deficits Objective Labs 03/28/24 16:40 03/28/24 16:40 Labs: Laboratory Results - last 24 hr 03/28/24 16:40 WBC 6.5 RBC 5.17 Hgb 15.0 Hct 46.6 H MCV 90.1 MCH 29.0 MCHC 32.2 RDW 15.1 H Plt Count 362 Neut % (Auto) 63.4 Lymph % (Auto) 27.3 [place] % (Auto) 6.9 Eos % (Auto) 1.7 L Baso % (Auto) 0.7 Neut # (Auto) 4100 Lymph # (Auto) 1800 [place] # (Auto) 400 Eos # (Auto) 100 Baso # (Auto) 0 PT 13.0 H INR 1.1 Sodium 136 L Potassium 4.1 Chloride 102 Carbon Dioxide 28 BUN 13 Creatinine 0.68 Estimated GFR > 60 BUN/Creatinine Ratio 19.1 Glucose 87 Calcium 9.7 Total Bilirubin 0.5 AST 50 H ALT 29 Alkaline Phosphatase 68 Total Protein 7.3 Albumin 4.1 Globulin 3.2 Albumin/Globulin Ratio 1.3 PFSH Medical History Easy bruisability Osteoarthritis Hx of supraventricular tachycardia (10/2016) Sinus bradycardia Breast cancer (2009) DVT (deep venous thrombosis) (2012) PSVT (paroxysmal supraventricular tachycardia) (2014) Cardiac arrhythmia (2014) Atrial fibrillation (2016) Hyperlipidemia (2004) GERD (gastroesophageal reflux disease) (2001) Anesthesia Surgical History History of colonoscopy (2008) Normal colonoscopy (2008) History of total mastectomy (2009) Status post colposcopy (2008) Family History Father No problems noted. Mother No problems noted. Social History marital status: number of children: 2 household members: spouse lives independently: Yes caregiver/support person: No housing: house Smoking Status: Former smoker second hand exposure: No alcohol intake: current substance use type: does not use Discharge Plan Discharge Plan Patient Disposition: er Acute Care Hospital Discharge Data Primary Care Provider: Lisa Stephen VTE Deep Vein Thrombosis/Pulmonary Embolism Present on Admission: No IH PROFEE Charge Codes Discharge inpatient/observation: [id number]
[2024-03-29 16:00] VITALS: BP 126/62; PULSE 67; RESP 19; TEMP 36.3; O2SAT 99
[2024-03-29 20:00] VITALS: BP 133/70; RESP 18; TEMP 36.6; O2SAT 99
[2024-03-29] MEDS: MELATONIN 3 MG TABLET PO (20:22)
[2024-03-29] MEDS: OXYCODONE IR 5 MG TABLET 10 MG PO (21:20)
== END 2024-03-29 21:48 | disposition short-term general hospital (02) | DRG 200 ==
LOC: ED 21:16 → AC 21:45
PROVIDERS: Emergency Medicine; Admitting Provider Family Medicine; Emergency Provider Emergency Medicine; Family Provider Family Medicine; PCP Family Medicine; Referring Provider Emergency Medicine; Visit Provider Family Medicine
DX: J95.811 Postprocedural pneumothorax (principal); C34.31 Malignant neoplasm of lower lobe, right bronchus or lung; J91.0 Malignant pleural effusion; C79.9 Secondary malignant neoplasm of unspecified site; Y84.8 Other medical procedures as the cause of abnormal reaction of the patient, or of later complication, without mention of misadventure at the time of the procedure; I48.0 Paroxysmal atrial fibrillation; K21.9 Gastro-esophageal reflux disease without esophagitis; J98.2 Interstitial emphysema; Z87.891 Personal history of nicotine dependence; Z79.01 Long term (current) use of anticoagulants
CPT/HCPCS: 32551; 32555; 36415; 71045; 71046; 71250; 71260; 74176; 80053; 82565; 82945; 83615; 85025; 85610; 87070; 87075; 87205; 89051; 96365; 96375; 99152; 99285; J0134; J1171; J2405; J2704; Q9967

== ENCOUNTER 2024-06-09 23:29 | Emergency (ER) | payer MEDICARE, OTHER, SELFPAY ==
[2024-03-28 22:15] VITALS: BMI 20.9
[2024-06-09 23:35] VITALS: BP 146/67; PULSE 57; RESP 19; TEMP 36.4; O2SAT 100; BMI 20.9
[2024-06-09] MEDS: MORPHINE 2 MG/ML INJ IV (23:54)
[2024-06-09 23:58] LABS: Add Manual Diff / Slide Review NO; Basophils Absolute Auto 0 /uL (0-100); Basophils Percent Auto 0.4 % (0-2); Eosinophils Absolute Auto 0 /uL (0-450); Eosinophils Percent Auto 0.2 % (2-4); Hematocrit 42.7 % (36-46); Lymphocytes Absolute Auto 800 /uL (1100-4500); Lymphocytes Percent Auto 7.9 % (25-40); Mean Corpuscular HGB Conc 32.9 % (30-36); Mean Corpuscular Hemoglobin 29.8 PG (26-34); Mean Corpuscular Volume 90.5 fL (80-100); Monocytes Absolute Auto 300 /uL (0-900); Monocytes Percent Auto 3.1 % (3-14); Neutrophils Absolute Auto 8500 /uL (1500-7000); Neutrophils Percent Auto 88.4 % (50-75); Platelet Count 333 X10^3/uL (150-400); Red Blood Cell Count 4.71 X10^6/uL (4.0-5.2); Red Cell Distribution Width 15.9 % (11.6-14.8); White Blood Cell Count 9.6 X10^3/uL (4.5-11.0)
[2024-06-10] VITALS (13 sets, daily range): BP systolic 111–159; BP diastolic 55–66; PULSE 51–67; RESP 18; O2SAT 95–99
[2024-06-10 00:13] LABS: Alanine Aminotransferase 232 IU/L (<35); Albumin 3.9 g/dL (3.5-5.0); Albumin Globulin Ratio 1.3 (1.0-2.8); Alkaline Phosphatase 152 U/L (38-126); Aspartate Aminotransferase 579 IU/L (14-36); BUN Creatinine Ratio 27.9 (6-22); Bilirubin Total 0.9 mg/dL (0.2-1.3); Blood Urea Nitrogen 19 mg/dL (7-17); Calcium 9.8 mg/dL (8.4-10.2); Carbon Dioxide 28 mmol/L (22-32); Chloride 103 mmol/L (98-107); Estimated Glomerular Filt Rate > 60 mL/min (>60); Glucose 137 mg/dL (80-110); HEMOLYSIS < 15 (0-50); Lipase 188 U/L (23-300); Potassium 4.1 mmol/L (3.4-5.1); Sodium 137 mmol/L (137-145); Total Protein 6.9 g/dL (6.3-8.2)
--- NOTE | 2024-06-10 02:03 | ED_ITS ---
HPI - Abdominal Pain General Chief Complaint: Abdominal Pain Stated Complaint: abd pain Time Seen by Provider: 06/10/24 02:12 Source: patient Mode of arrival: Ambulatory History of Present Illness HPI narrative: Patient is a 74-year-old female with a history of paroxysmal AFib on Eliquis, hyperlipidemia, comes into the ED from home for evaluation of upper abdominal pain states that she feels like it wrapped around her back, she denies any nausea vomiting diarrhea. States it started spontaneously earlier today, she denies any other symptoms such as headache visual disturbances chest pain shortness of breath fever chills or any other GI/ symptoms at this time. She states that she is currently being worked up for possible liver malignancy and did have a liver biopsy performed on Thursday at [facility]. States that she did stop her Eliquis 24 hours prior to that procedure, states that she has restarted her Eliquis since then took last dose yesterday as normal. Related Data Home Medications Medication Instructions Recorded Confirmed cholecalciferol (vitamin D3) 125 125 mcg PO DAILY ##0 12/09/12 05/27/24 mcg (5,000 unit) tablet (Vitamin D3) [id number]-kicjijwzzqcus-vikmjnhw 250 2 tab PO PRN PRN Pain 12/09/23 05/27/24 mg-250 mg-65 mg tablet (Excedrin Extra Strength) flecainide 150 mg tablet 75 mg PO Q12H 12/09/23 05/27/24 metoprolol succinate 25 mg 12.5 mg PO DAILY 12/09/23 05/27/24 tablet,extended release 24 hr (Toprol XL) atorvastatin 10 mg tablet 10 mg PO DAILY 02/16/24 05/27/24 magnesium oxide 400 mg (241.3 mg 400 mg PO BID 02/16/24 05/27/24 magnesium) tablet omeprazole 40 mg capsule,delayed 20 mg PO BID 03/28/24 05/27/24 release Previous Rx's Medication Instructions Recorded apixaban 5 mg tablet (Eliquis) 5 mg PO BID #60 tabs 09/09/17 clotrimazole 1 % topical cream 1 applic topical BID #45 grams 02/16/24 nystatin 100,000 unit/gram topical 1 applic topical DAILY #60 grams 02/16/24 powder ondansetron 4 mg disintegrating 4 mg PO TID PRN nausea and 06/10/24 tablet vomiting 5 days #15 tabs oxycodone 5 mg capsule 5 mg PO Q8H PRN pain 5 days #15 06/10/24 caps Allergies Allergy/AdvReac Type Severity Reaction Status Date / Time No Known Drug Allergies Allergy Verified 05/27/24 08:35 Review of Systems Review of Systems Narrative: General: Denies fever, chills, weight loss HEENT: Denies headache, eye drainage, eye irritation, head trauma, sore throat, voice change Cardiovascular: Denies any chest pain, palpitations, shortness of breath, tachycardia Respiratory: Denies any shortness of breath, cough, wheeze, stridor GI/: Positive upper abdominal pain, denies nausea, vomiting, diarrhea, bright red blood per rectum, melanotic stools, urinary frequency, urinary retention, dysuria, hematuria MSK: Denies any joint pain, muscle pains, swelling Skin: Denies any rashes, lesions, discoloration Neuro: Denies any headache, lightheadedness, dizziness, fainting, weakness Psych: Denies SI/HI Patient History Medical History Easy bruisability Osteoarthritis Hx of supraventricular tachycardia (10/2016) Sinus bradycardia Breast cancer (2009) DVT (deep venous thrombosis) (2012) PSVT (paroxysmal supraventricular tachycardia) (2014) Cardiac arrhythmia (2014) Atrial fibrillation (2016) Hyperlipidemia (2004) GERD (gastroesophageal reflux disease) (2001) Anesthesia Surgical History History of colonoscopy (2008) Normal colonoscopy (2008) History of total mastectomy (2009) Status post colposcopy (2008) Family History Father No problems noted. Mother No problems noted. Social History marital status: number of children: 2 household members: spouse lives independently: Yes caregiver/support person: No housing: house Smoking Status: Former smoker second hand exposure: No alcohol intake: current substance use type: does not use Smoking Status: Former smoker alcohol intake frequency: 0-2 drinks per day Alcohol type: wine Exam Narrative Exam Narrative: General: Cooperative, comfortable, well-developed, not in acute distress HEENT: Normocephalic, atraumatic, PERRLA, normal sclera, eyelids normal, Neck: Active full range of motion, atraumatic Chest: Normal to inspection, negative crepitus, no overlying erythema ecchymosis Respiratory: Normal respiratory effort, not in acute respiratory distress, decreased lung sounds noted to the lower right lung, negative cough, wheeze, tachypnea, rhonchi, rales Cardiology: Regular rate rhythm negative gallop, murmur, rubs GI/: Normal to inspection, soft, nonrigid, no tenderness to palpation, exam deferred MSK: Full range of active range of motion of all 4 extremities, atraumatic Skin: No rashes lesions noted Neuro: Alert awake oriented x3, moves all 4 extremities spontaneously, cranial nerves intact, able to answer all questions appropriately follows commands appropriately Psych: Cooperative, negative suicidal or homicidal ideations Initial Vital Signs Initial Vital Signs: Vital Signs Temperature 97.6 F 06/09/24 23:35 Pulse Rate 57 L 06/09/24 23:35 Respiratory Rate 19 06/09/24 23:35 Blood Pressure 146/67 H 06/09/24 23:35 Pulse Oximetry 100 06/09/24 23:35 Oxygen Delivery Method Room Air 06/09/24 23:35 Course Orders Ordered: ED Orders 06/09/24 23:39 EKG-12 Lead Stat 06/09/24 23:45 Complete Blood Count AUTO DIFF Stat Comprehensive Metabolic Panel Stat Lipase Stat 06/10/24 02:12 CT abdomen pelvis w con Stat 06/10/24 02:13 CXR [XR chest 1V] Stat 06/10/24 05:15 MAG [Magnesium] Stat Troponin & CK Cardiac Panel Stat Ondansetron HCl (Ondansetron 4 Mg/2 Ml Inj) 4 mg IV NOW PRN PRN Reason: Nausea And Vomiting Last Admin: 06/10/24 03:15 Dose: 4 mg Documented By: SALLY Ondansetron HCl (Ondansetron 4 Mg Odt) 4 mg PO NOW PRN PRN Reason: Nausea And Vomiting Discontinued Medications Morphine Sulfate (Morphine 2 Mg/Ml Inj) 2 mg IV NOW ONE Stop: 06/09/24 23:52 Last Admin: 06/09/24 23:54 Dose: 2 mg Documented By: SALLY Morphine Sulfate (Morphine 4 Mg/Ml Inj) 2 mg IV NOW ONE Stop: 06/10/24 02:56 Last Admin: 06/10/24 03:01 Dose: Not Given Documented By: SALLY Morphine Sulfate (Morphine 2 Mg/Ml Inj) 2 mg IV NOW ONE Stop: 06/10/24 03:01 Last Admin: 06/10/24 03:02 Dose: 2 mg Documented By: ANDRÉS Vital Signs Vital signs: Vital Signs - 8 hr 06/09/24 23:35 06/10/24 01:59 06/10/24 01:59 Temperature 97.6 F Pulse Rate 57 L 64 Respiratory Rate 19 Blood Pressure 146/67 H 130/63 Pulse Oximetry 100 97 Oxygen Delivery Method Room Air 06/10/24 02:00 06/10/24 02:00 06/10/24 02:41 Temperature Pulse Rate 60 65 Respiratory Rate 18 Blood Pressure 127/66 Pulse Oximetry 96 95 Oxygen Delivery Method 06/10/24 02:42 06/10/24 02:42 06/10/24 03:00 Temperature Pulse Rate 62 59 L Respiratory Rate 18 Blood Pressure 159/66 H Pulse Oximetry 97 99 Oxygen Delivery Method 06/10/24 03:30 06/10/24 03:38 06/10/24 03:38 Temperature Pulse Rate 54 L 55 L Respiratory Rate 18 Blood Pressure 118/57 L Pulse Oximetry 96 97 Oxygen Delivery Method 06/10/24 04:00 06/10/24 04:00 06/10/24 04:30 Temperature Pulse Rate 56 L 51 L Respiratory Rate Blood Pressure 112/56 L Pulse Oximetry 97 98 Oxygen Delivery Method 06/10/24 04:30 06/10/24 05:00 06/10/24 05:00 Temperature Pulse Rate 67 Respiratory Rate Blood Pressure 111/55 L 115/56 L Pulse Oximetry 99 Oxygen Delivery Method Room Air MDM - Abdominal Pain Differential Diagnosis Differential diagnosis: Likely other (ACS, pneumonia, cholecystitis, cholelithiasis, electrolyte abnormality) Lab Data 06/09/24 23:45 06/09/24 23:45 Labs: Lab Results 06/09/24 06/10/24 Range/Units 23:45 05:15 WBC 9.6 (4.5-11.0) X10^3/uL RBC 4.71 (4.0-5.2) X10^6/uL Hgb 14.0 (12.0-16.0) g/dL Hct 42.7 (36-46) % MCV 90.5 (80-100) fL MCH 29.8 (26-34) PG MCHC 32.9 (30-36) % RDW 15.9 H (11.6-14.8) % Plt Count 333 (150-400) X10^3/uL Neut % (Auto) 88.4 H (50-75) % Lymph % (Auto) 7.9 L (25-40) % [place] % (Auto) 3.1 (3-14) % Eos % (Auto) 0.2 L (2-4) % Baso % (Auto) 0.4 (0-2) % Neut # (Auto) 8500 H (9046-8607) /uL Lymph # (Auto) 800 L (3809-5123) /uL [place] # (Auto) 300 (0-900) /uL Eos # (Auto) 0 (0-450) /uL Baso # (Auto) 0 (0-100) /uL Sodium 137 (137-145) mmol/L Potassium 4.1 (3.4-5.1) mmol/L Chloride 103 (98-107) mmol/L Carbon Dioxide 28 (22-32) mmol/L BUN 19 H (7-17) mg/dL Creatinine 0.68 (0.52-1.04) mg/dL Estimated GFR > 60 (>60) mL/min BUN/Creatinine Ratio 27.9 H (6-22) Glucose 137 H (80-110) mg/dL Calcium 9.8 (8.4-10.2) mg/dL Magnesium 1.7 (1.6-2.3) mg/dL Total Bilirubin 0.9 (0.2-1.3) mg/dL AST 579 H (14-36) IU/L ALT 232 H (<35) IU/L Alkaline Phosphatase 152 H (38-126) U/L Total Creatine Kinase 94 (30-135) U/L Troponin I 0.013 (0.01-0.034) ng/mL Total Protein 6.9 (6.3-8.2) g/dL Albumin 3.9 (3.5-5.0) g/dL Globulin 3.0 (1.7-4.1) g/dL Albumin/Globulin Ratio 1.3 (1.0-2.8) Lipase 188 (23-300) U/L Imaging Data Chest x-ray: Radiologist's Impression: Preliminary read showing moderate to large right-sided pleural effusion CT scan - abdomen/pelvis: Radiologist's Impression: Preliminary read showing partially imaged large right-sided pleural effusion, multifocal suspicious osseous lesions in the liver suspicious for malignancy/metastatic disease as well as hypertrophy of the left lateral segment with multiple nodularities consistent with fibrosis/early cirrhosis, questionable circumferential wall thickening and edema of the distal gastric body/gastric antrum possibly related to underdistention under contraction, gallbladder is distended with mild wall edema possibly secondary to intrinsic liver dysfunction, overload volume status and/or cholecystitis, intrahepatic and extrahepatic biliary ductal dilation with soft tissue attenuation filling defect in the common bile duct reflecting possible internal debris or mass MDM Narrative Medical decision making narrative: 74-year-old female with a past medical history of AFib on Eliquis hyperlipidemia breast cancer status post bilateral mastectomy, comes into the ED from home for evaluation of upper abdominal/epigastric chest pain pressure. To note patient states did have a liver biopsy performed at [facility] on Thursday. Chest x-ray showing moderate to large right-sided pleural effusion. Patient has bilirubin of 0.9, AST 579, ALT 232, alk-phos 152, patient without any specific right upper quadrant abdominal tenderness, negative Rose's sign, CT scan showing gallbladder wall edema however less likely acute cholecystitis given normal bilirubin and negative Rose's sign/upper abdominal tenderness to palpation. CT scan also showing multiple findings concerning for metastatic disease within the abdomen. Patient's symptoms more likely secondary to metastatic disease within the abdomen. Therefore patient will be sent home with oral analgesics strict return precautions and follow up with specialists in outpatient setting 0512: Patient re-evaluated no new complaints at this time, patient remains without any shortness of breath without need for supplemental oxygen, after further questioning patient reveals that she has known right-sided pleural effusions requiring drainage in the past, states the most recent was a proximally 3 weeks ago, states that they have had discussions of possible placement of PleurX catheter for recurrent effusion. Patinet states she follows with Dr. Steele of pulmonology. Informed patient and at bedside that we are still awaiting CT scan results to rule out any intra-abdominal abnormalities, however would reach out to their pulmonology team to discuss intervention recommendations for her right-sided pleural effusion, they state that they would prefer not to be transferred/admitted and would rather have things in an outpatient setting. 0530: Had a discussion with Dr. Riggs of general surgery in regards to patient's CT scan showing biliary ductal dilation with filling defect, states this could be secondary to either metastatic disease and/or due to patient's recent biopsy, agrees that given patient with normal bilirubin less likely cholecystitis/choledocholithiasis, elevated liver functions most likely secondary to known metastatic/liver cancer. States does not need emergent urgent ERCP or MRCP, would recommend following up with patient's care team at [facility]. 0548: Had discussion with business office associate Dr. Young, at [facility], he states that there is no definitive diagnosis of malignant effusion per his records however states that as long as patient is not requiring supplemental oxygen does not need urgent emergent drainage does not require transfer, states that patient can follow up outpatient with the clinic recommends calling them in the morning to set up an appointment states patient needs to have a discussion about PleurX catheter placement given the fact that patient has been having recurrent effusions now requiring multiple drainage. 0610: Patient was re-evaluated complete resolution of her symptoms here, I discussed recommendations General surgery as well as pulmonology in regards to need for follow up in an outpatient setting for drainage of the pleural effusion as well as possible ERCP MRCP workup for the dilated common bile duct. Patient and at bedside state that they do have a follow up with their oncologist in the next week to discuss next steps and plans in regards to liver metastatic disease. They feel comfortable following up with their business office associate oncologist as well as GI and in outpatient setting. They were given strict return precautions they verbalized understanding of this and agrees to being discharged home with outpatient follow up Discharge Plan Departure Patient Disposition: Home Clinical Impression: Pleural effusion, right, Dilated bile duct, Liver mass, Elevated LFTs Activity Restrictions/Additional Instructions: Please follow up with pulmonology to have your pleural effusion drained Call ? (Dr. Ken Lopes) Please follow up with GI and General surgery for your enlarged common bile duct Please follow up with your oncologist for your scheduled appointment Please read the discharge instructions sheet carefully and bring all papers to all doctor follow-up visits, as it may contain information that your doctor may want to see. Disease processes change and evolve, if your symptoms worsen or if you develop any new symptoms that are concerning to you please return for evaluation. Your evaluation today does not show any evidence of any life- threatening/serious illnesses requiring admission to the hospital or surgery. Please follow-up with your doctor for re-evaluation in approximately 1 day. Seek immediate medical attention for any worrisome symptoms. *If you do not have a primary care provider please contact the [facility] Resource line at [phone]. They will ask some questions about your medical history and help get you set up with a doctor in the community. Prescriptions: New oxycodone 5 mg capsule 5 mg PO Q8H PRN (Reason: pain) 5 Days Qty: 15 0RF ondansetron 4 mg tablet,disintegrating 4 mg PO TID PRN (Reason: nausea and vomiting) 5 Days Qty: 15 0RF No Action atorvastatin 10 mg tablet 10 mg PO DAILY magnesium oxide 400 mg (241.3 mg magnesium) tablet 400 mg PO BID clotrimazole 1 % cream 1 applic topical BID Qty: 45 0RF Rx Instructions: apply light coating to affected area BID 2-4 weeks nystatin 100,000 unit/gram powder 1 applic topical DAILY Qty: 60 0RF cholecalciferol (vitamin D3) [Vitamin D3] 125 mcg (5,000 unit) Tablet 125 mcg PO DAILY Qty: 0 apixaban [Eliquis] 5 mg tablet 5 mg PO BID Qty: 60 6RF flecainide 150 mg Tablet 75 mg PO Q12H Excedrin Extra Strength 250-250-65 mg Tablet 2 tab PO PRN PRN (Reason: Pain) metoprolol succinate [Toprol XL] 25 MG tablet extended release 24 hr 12.5 mg PO DAILY omeprazole 40 mg capsule,delayed release(DR/EC) 20 mg PO BID Patient Comments: Pt reports 20mg bid Rx Instructions: TAKE ONE CAPSULE BY MOUTH ONE TIME DAILY Referrals: Lisa Stephen MD [Primary Care Provider] - Stand Alone Forms: Patient Portal/API/Survey
--- NOTE | 2024-06-10 02:12 | DI.CT.S_ITS ---
PROCEDURE: CT ABDOMEN PELVIS W CON INDICATIONS: upper abd pain, s/p liver biopsy TECHNIQUE: After the administration of intravenous contrast, axial sections acquired from the lung bases to the pubic symphysis. Coronal and sagittal reformats were performed. For radiation dose reduction, the following was used: automated exposure control, adjustment of mA and/or kV according to patient size. COMPARISON: [facility], [place], [place] PET CT FUSION SKULL 2 THIGH, 04/13/2024, 16:31. [facility], CT, CT ABDOMEN PELVIS WO CON, 03/29/2024, 13:11. FINDINGS: Image quality: Portions of the lower pelvis are suboptimally evaluated secondary to metallic streak artifact from hip arthroplasty. Lower Chest: [id number] right effusion with superimposed opacity, extending to the perihilar region.. Bilateral breast implants. ABDOMEN: Liver: Multiple low-attenuation hepatic masses are present. While some appear consistent with simple cysts, others are heterogeneous in appearance more concerning for malignancy. The largest is identified post tear early on series 2, image 54 measuring 3.7 x 3.3 cm. It is poorly delineated on most recent prior exam secondary to lack of IV contrast. However, PET scan demonstrated multiple hepatic lesions consistent with malignancy. Liver has an overall nodular appearance. Gallbladder: Mildly thickened gallbladder wall without stones, suspected to be related to hepatic disease. Biliary ducts: Mild intra and extrahepatic biliary dilation with the common bile duct measuring 1.3 cm. There is a hyperdense focus within the common bile duct measuring 5 mm on series 2, image 73, not well seen on prior exam. Ductal dilation appears more prominent. Pancreas: No ductal dilation. Spleen: Size is within normal limits. Adrenal Glands: Small adrenal nodule unchanged. Kidneys and Ureters: No hydronephrosis. 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 Stomach and Bowel: Normal colonic caliber, without significant wall thickening. Peritoneum: Trace perihepatic fluid is present. No free air. Ventral Wall: No significant ventral hernia. Abdominal Nodes: No retroperitoneal or mesenteric adenopathy by size criteria. However, there are numerous retroperitoneal lymph nodes. Vessels: Aorta and inferior vena cava are normal in size. PELVIS: Pelvic Organs: Unremarkable. Bladder: No bladder wall thickening, accounting for underdistention. Pelvic Nodes: No enlarged lymph nodes. Miscellaneous: No inguinal hernias are seen. Bones: Multiple sclerotic osseous foci.. Right hip arthroplasty. IMPRESSION: Moderate right effusion with superimposed consolidative opacities. The latter could represent pneumonia, atelectasis or other mass lesion. Recommend interval follow-up. Multiple hypoattenuating lesions within the liver highly suspicious for metastatic disease. Intra and extrahepatic biliary dilation with filling defect in the common bile duct. Etiology is uncertain while this could represent debris, mass or poorly visualized stone. It is not clearly identified on prior exam and further evaluation is recommended. Multiple bony lesions most consistent with metastatic disease. The above findings are concordant with preliminary report. Dictated by: Meli Zee M.D. on 06/10/2024 at 8:20 Approved by: Meli Zee M.D. on 06/10/2024 at 8:39
--- NOTE | 2024-06-10 02:13 | DI.RAD.S_ITS ---
PROCEDURE: XR CHEST 1V INDICATIONS: epigastric pain TECHNIQUE: One view of the chest was acquired. COMPARISON: [facility], CT, CT ABDOMEN PELVIS W CON, 06/10/2024, 2:17. [facility], CR, XR CHEST 2V, 03/29/2024, 11:07. FINDINGS: Surgical changes and devices: None. Lungs and pleura: Mild right effusion with likely superimposed opacities. Mediastinum: Mediastinal contours appear normal. Heart size is prominent. Bones and chest wall: No suspicious bony lesions. Overlying soft tissues appear unremarkable. IMPRESSION: Right effusion with superimposed opacities. The latter can represent pneumonia, atelectasis or other mass lesion. Dictated by: Meli Zee M.D. on 06/10/2024 at 8:17 Approved by: Meli Zee M.D. on 06/10/2024 at 8:18
[2024-06-10] MEDS: MORPHINE 2 MG/ML INJ IV (03:02)
[2024-06-10] MEDS: ONDANSETRON 4 MG/2 ML INJ IV (03:15)
[2024-06-10 05:31] LABS: Creatine Kinase 94 U/L (30-135); Magnesium 1.7 mg/dL (1.6-2.3)
[2024-06-10 05:43] LABS: Troponin I 0.013 ng/mL (0.01-0.034)
== END 2024-06-10 06:41 | disposition home or self-care (01) ==
PROVIDERS: Emergency Provider Student in an Organized Health Care Education/Training Program; Family Provider Family Medicine; PCP Family Medicine
DX: J90 Pleural effusion, not elsewhere classified (principal); K83.8 Other specified diseases of biliary tract; R16.0 Hepatomegaly, not elsewhere classified; R79.89 Other specified abnormal findings of blood chemistry; I48.91 Unspecified atrial fibrillation; E78.5 Hyperlipidemia, unspecified; Z79.01 Long term (current) use of anticoagulants; Z87.891 Personal history of nicotine dependence; Z86.718 Personal history of other venous thrombosis and embolism
CPT/HCPCS: 36415; 71045; 74177; 80053; 82550; 83690; 83735; 84484; 85025; 96374; 96375; 96376; 99284; 99285; J2270; J2405; Q9967

== ENCOUNTER → 2025-01-19 08:13 | Outpatient (CLI) | payer MEDICARE, OTHER, SELFPAY ==
[2024-03-28 22:15] VITALS: BMI 20.9
--- NOTE | 2025-01-19 08:16 | DI.RAD.S_ITS ---
PROCEDURE: XR FOOT LT MIN 3V INDICATIONS: Left foot pain TECHNIQUE: 3 views of the foot were acquired. COMPARISON: None. 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 Mild degeneration seen throughout the midfoot . Soft tissues: Moderate diffuse soft tissue swelling IMPRESSION: Moderate diffuse soft swelling likely edema. Other chronic findings Dictated by: Jono Osei M.D. on 01/19/2025 at 9:35 Approved by: Jono Osei M.D. on 01/19/2025 at 9:37
--- NOTE | 2025-01-19 08:16 | DI.RAD.S_ITS ---
PROCEDURE: XR KNEE RT 3V INDICATIONS: Right knee pain TECHNIQUE: 3 views of the knee were acquired. COMPARISON: None. FINDINGS: Bones: There are no osseous abnormalities. Joints: Moderate patellofemoral and mild tibiofemoral degeneration noted. No effusion. Soft tissues: Normal IMPRESSION: Degeneration. Dictated by: Jono Osei M.D. on 01/19/2025 at 9:37 Approved by: Jono Osei M.D. on 01/19/2025 at 9:37
== END ==
PROVIDERS: Family Provider Family Medicine; PCP Family Medicine; Referring Provider Nurse Practitioner Family; Visit Provider Nurse Practitioner Family
DX: M19.072 Primary osteoarthritis, left ankle and foot (principal); M17.11 Unilateral primary osteoarthritis, right knee
CPT/HCPCS: 73562; 73630

== ENCOUNTER → 2025-02-23 14:08 | Outpatient (CLI) | payer MEDICARE, OTHER, SELFPAY ==
[2024-03-28 22:15] VITALS: BMI 20.9
--- NOTE | 2025-02-23 14:10 | DI.RAD.S_ITS ---
PROCEDURE: XR CHEST 2V INDICATIONS: H/o pleural effusion s/p thoracentesis, fatigue, eval TECHNIQUE: 2 views of the chest were acquired. COMPARISON: [facility], [place], [place] FUSION SKULL 2 THIGH, 04/13/2024, 16:31. [facility], CR, XR CHEST 1V, 06/10/2024, 2:20. [facility], CR, XR CHEST 2V, 03/29/2024, 11:07. [facility], CR, XR CHEST 2V, 03/21/2024, 12:05. FINDINGS: Surgical changes and devices: None. Lungs and pleura: Moderate right pleural effusion with atelectasis of the adjacent right lung. Mild left mid to lower lung zone opacities. Mediastinum: Mediastinal contours are normal. Heart size is normal. Bones and chest wall: No suspicious bony abnormalities. Soft tissues appear unremarkable. IMPRESSION: 1. New patchy opacities in the left lung are suspicious for pneumonia or aspiration. 2. Moderate right pleural effusion and right basilar atelectasis or consolidation. Approved by: Shiraz Molina M.D. on 02/23/2025 at 14:49
== END ==
PROVIDERS: Family Provider Family Medicine; PCP Family Medicine; Referring Provider Internal Medicine Critical Care Medicine; Visit Provider Internal Medicine Critical Care Medicine
DX: J90 Pleural effusion, not elsewhere classified (principal); R06.02 Shortness of breath
CPT/HCPCS: 71046

== ENCOUNTER → 2025-03-15 08:57 | Outpatient (CLI) | payer MEDICARE, OTHER, SELFPAY ==
[2024-03-28 22:15] VITALS: BMI 20.9
[2025-03-15 09:39] LABS: Alanine Aminotransferase 25 IU/L (<35); Albumin 3.1 g/dL (3.5-5.0); Albumin Globulin Ratio 1.0 (1.0-2.8); Alkaline Phosphatase 81 U/L (38-126); Blood Urea Nitrogen 30 mg/dL (7-17); Calcium 9.0 mg/dL (8.4-10.2); Carbon Dioxide 29 mmol/L (22-32); Chloride 99 mmol/L (98-107); Estimated Glomerular Filt Rate 45 mL/min (>60); Globulin 3.0 g/dL (1.7-4.1); Glucose 88 mg/dL (70-99); HEMOLYSIS 36 (0-50); Magnesium 1.8 mg/dL (1.6-2.3); Phosphorous 2.7 mg/dL (2.8-4.1); Potassium 4.1 mmol/L (3.4-5.1); Sodium 134 mmol/L (137-145); Total Protein 6.1 g/dL (6.3-8.2)
[2025-03-15 09:42] LABS: Add Manual Diff / Slide Review NO; Hematocrit 31.6 % (36-46); Hemoglobin 10.7 g/dL (12.0-16.0); Lymphocytes Absolute Auto 300 /uL (1100-4500); Mean Corpuscular HGB Conc 33.8 % (30-36); Mean Corpuscular Hemoglobin 35.3 PG (26-34); Mean Corpuscular Volume 104.3 fL (80-100); Platelet Count 177 X10^3/uL (150-400)
== END ==
PROVIDERS: Family Provider Family Medicine; PCP Family Medicine; Referring Provider Internal Medicine; Visit Provider Internal Medicine
DX: C50.919 Malignant neoplasm of unspecified site of unspecified female breast (principal); R53.1 Weakness; J90 Pleural effusion, not elsewhere classified; Z17.0 Estrogen receptor positive status [ER+]
CPT/HCPCS: 36415; 80053; 83735; 84100; 85025